=== PATIENT | female | born 2000 | race Hispanic/Latino ===

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

== ENCOUNTER → 2023-07-30 | Emergency (ER) | payer OTHER ==
[~2023-07-30] MED LIST: NA CHLORIDE 0.9% 2,000 ML ONE; ONDANSETRON 4 MG/2 ML VIAL ONE
--- OUTSIDE RECORDS SUMMARY | 2023-07-30 14:39 | XMS REPORT | Continuity of Care Document ---
Author Name Unknown Address [address] [facility] [place] [address] [facility] thconnect Address [address] [facility] [place] [address] Care Team Providers Care Lehr Loader Name Role Phone PCP, PATIENT DOES NOT HAVE A Primary Care Physic madi Unavailable GLO PARTIDA Attending Clinician Unavailable MONSERRAT HANSON Attending Clinician UnavailMonserrat Walker CNM Attending Clinician [phone] Doctor Unassigned, [place] Attending Clinician Glo Frausto MD Attending Clinician IBIS MARTINEZ Attending Clinician Unavailable MARI PICKERING Attending Clinician Unavailable BRITTNEY BANSAL Attending Clinician Unavailab BRITTNEY Shirley Attending Clinician Unavailab KERVIN Wilson Attending Clinician Unavailable VICKEY NGUYEN Attending Clinician Unavailable Carmela MARTINEZ Vickey S Attending Clinician [phone] JULIETA OSBORNE Attending Clinician Unavaila JULIETA Bhakta Attending Clinician UnavailVIJI Chapa Attending Clinician Unavailable Viji Guillen MD Attending Clinician [phone] [facility]ician Unavailable Pob, [facility] Main Attending Clinician Unavailcarlos Ceron RN, Evangelista Attending Clinician Unavailab jade HORNE, Shobha Attending Clinician [phone] Day MOSELEY, [place] Heck Attending Clinician VICKEY NGUYEN Admitting Clinician Unavailable Payers Payer Name Policy Type Policy Number Effective Date Expirati on Date Source [facility] [id number] 00:00:00 [place] [id number] 2023 00:00:00 Problems Condition Name Condition Details Condition Category Status Onset Date Resolution Date Last Treatment Date Treating Clinician Comments Source Chlamydia infection affecting Chlamydia infection affecting Disease Active 07-17 00:00: 00 [facility] History of asthma History of asthma Disease Active 07-15 00:00: 00 [facility] History of depression History of depression Disease Active 07-15 00:00: 00 [facility] General counseling and advice on female contracept ion General counseling and advice on female contracept ion Disease Active 07-26 00:00: 00 [facility] Nexplanon in place Nexplanon in place Disease Active 07-26 00:00: 00 [facility] Encounter for assessment of STD exposure Encounter for assessment of STD exposure Disease Active 2020-05 0 00:00: 00 [facility] Allergies, Adverse Reactions, Alerts Allergy Name Allergy Type Status Severity Reaction(s) Onset Date Inactive Date Treating Clinician Comments Source Penicill ins Propensi ty to adverse reaction s Active Other - See comments 2015-05 00:00: [address], fever [facility] PENICILL INS Drug Class Active Hives 2015-05 00:00: 00 [facility] Penicill ins Propensi ty to adverse reaction s Active Other - See comments 2015-05 00:00: [address], fever [facility] Social History Social Habit Start Date Stop Date Quantity Comments Source ASSERTION 2023-06-29 00:00:00 [facility] Sexual orientation [facility] Alcohol intake 2023-07-16 00:00:00 2023-07-16 00:00:00 Ex-drinker (finding) [facility] History of Social function 2023-03-26 00:00:00 2023-03-26 00:00:00 [facility] Exposure to SARS-CoV-2 (event) 2022-03-26 00:00:00 2022-04-05 13:34:00 Not sure [facility] Tobacco use and exposure 2022-02-06 00:00:00 2022-02-06 00:00:00 Smokeless tobacco non-user [facility] History SDOH Alcohol Frequency 2020-02-29 00:00:00 2020-02-29 00:00:00 99 [facility] History SDOH Alcohol Std Drinks 2020-02-29 00:00:00 2020-02-29 00:00:00 99 [facility] History SDOH Alcohol Binge 2020-02-29 00:00:00 2020-02-29 00:00:00 99 [facility] Alcohol Comment 2020-02-29 00:00:00 2020-02-29 00:00:00 last drank alcohol in 11/2019 [facility] Sex Assigned At 2002 00:00:00 2000 00:00:00 [facility] Smoking Status Start Date Stop Date Source Never smoked tobacco [facility] Medications Ordered Medication Name Filled Medication Name Start Date Stop Date Current Medication? Ordering Clinician Indication Dosage Frequency Signature (SIG) Comments Components Source azithromyci n (ZITHROMAX) 500 mg tablet 18 00:00: 00 07-22 04:59 :00 Yes [id number] 1000mg Take 2 tablets by mouth once now for 1 dose. [facility] azithromyci n (ZITHROMAX) 500 mg tablet 3-14 00:00: 00 07-18 04:59 :00 Yes [id number] 1000mg Take 2 tablets by mouth once now for 1 dose. [facility] azithromyci n (ZITHROMAX) 500 mg tablet 3-14 00:00: 00 07-18 04:59 :00 Yes [id number] 1000mg Take 2 tablets by mouth once now for 1 dose. [facility] etonogestre L 68 mg implant 2022-05 09:45: 49 03-26 00:00 :00 No 68mg 68 mg by Subdermal route once now. [facility] etonogestre L 68 mg implant 2022-05 09:45: 49 03-26 00:00 :00 No 68mg 68 mg by Subdermal route once now. [facility] cyclobenzap rine 10 mg tablet 2021-05 00:00: 00 Yes [id number] 10mg Take 1 tablet by mouth in the morning and 1 tablet at noon and 1 tablet in the evening. [facility] ketorolac 10 mg tablet 2021-05 00:00: 00 Yes [id number] 10mg Take 1 tablet by mouth every 6 (six) hours as needed for Pain (scale 7-10). [facility] cyclobenzap rine 10 mg tablet 2021-05 00:00: 00 Yes [id number] 10mg Take 1 tablet by mouth in the morning and 1 tablet at noon and 1 tablet in the evening. [facility] ketorolac 10 mg tablet 2021-05 00:00: 00 Yes [id number] 10mg Take 1 tablet by mouth every 6 (six) hours as needed for Pain (scale 7-10). [facility] cyclobenzap rine 10 mg tablet 2021-05 00:00: 00 Yes [id number] 10mg Take 1 tablet by mouth in the morning and 1 tablet at noon and 1 tablet in the evening. [facility] ketorolac 10 mg tablet 2021-05 00:00: 00 Yes [id number] 10mg Take 1 tablet by mouth every 6 (six) hours as needed for Pain (scale 7-10). [facility] cyclobenzap rine 10 mg tablet 2021-05 00:00: 00 Yes [id number] 10mg Take 1 tablet by mouth in the morning and 1 tablet at noon and 1 tablet in the evening. [facility] ketorolac 10 mg tablet 2021-05 00:00: 00 Yes [id number] 10mg Take 1 tablet by mouth every 6 (six) hours as needed for Pain (scale 7-10). [facility] cyclobenzap rine 10 mg tablet 2021-05 00:00: 00 Yes [id number] 10mg Take 1 tablet by mouth in the morning and 1 tablet at noon and 1 tablet in the evening. [facility] ketorolac 10 mg tablet 2021-05 00:00: 00 Yes [id number] 10mg Take 1 tablet by mouth every 6 (six) hours as needed for Pain (scale 7-10). [facility] cyclobenzap rine 10 mg tablet 2021-05 00:00: 00 Yes [id number] 10mg Take 1 tablet by mouth in the morning and 1 tablet at noon and 1 tablet in the evening. [facility] ketorolac 10 mg tablet 2021-05 00:00: 00 Yes [id number] 10mg Take 1 tablet by mouth every 6 (six) hours as needed for Pain (scale 7-10). [facility] cyclobenzap rine 10 mg tablet 2021-05 00:00: 00 Yes [id number] 10mg Take 1 tablet by mouth in the morning and 1 tablet at noon and 1 tablet in the evening. [facility] ketorolac 10 mg tablet 2021-05 00:00: 00 Yes [id number] 10mg Take 1 tablet by mouth every 6 (six) hours as needed for Pain (scale 7-10). [facility] cyclobenzap rine 10 mg tablet 2021-05 00:00: 00 Yes [id number] 10mg Take 1 tablet by mouth in the morning and 1 tablet at noon and 1 tablet in the evening. [facility] ketorolac 10 mg tablet 2021-05 00:00: 00 Yes [id number] 10mg Take 1 tablet by mouth every 6 (six) hours as needed for Pain (scale 7-10). [facility] cyclobenzap rine 10 mg tablet 2021-05 00:00: 00 07-15 00:00 :00 No [id number] 10mg Take 1 tablet by mouth in the morning and 1 tablet at noon and 1 tablet in the evening. [facility] ketorolac 10 mg tablet 2021-05 00:00: 00 07-15 00:00 :00 No [id number] 10mg Take 1 tablet by mouth every 6 (six) hours as needed for Pain (scale 7-10). [facility] etonogestre L 68 mg implant 06-30 13:30: 19 Yes 68mg 68 mg by Subdermal route once now. [facility] etonogestre L 68 mg implant 0 06-30 13:30: 19 Yes 68mg 68 mg by Subdermal route once now. [facility] etonogestre L 68 mg implant 0 06-30 13:30: 19 Yes 68mg 68 mg by Subdermal route once now. [facility] etonogestre L 68 mg implant 2021-0 06-30 13:30: 19 Yes 68mg 68 mg by Subdermal route once now. [facility] etonogestre L 68 mg implant 2021-0 06-30 13:30: 19 Yes 68mg 68 mg by Subdermal route once now. [facility] etonogestre L 68 mg implant 0 06-30 13:30: 19 Yes 68mg 68 mg by Subdermal route once now. [facility] etonogestre L 68 mg implant 2021-0 06-30 13:30: 19 Yes 68mg 68 mg by Subdermal route once now. [facility] etonogestre L 68 mg implant 06-30 13:30: 19 Yes 68mg 68 mg by Subdermal route once now. [facility] ity [facility] etonogestre L 68 mg implant 06-30 13:30: 19 Yes 68mg 68 mg by Subdermal route once now. [facility] ity [facility] azithromyci n 1 gram powder 2019-05 00:00: 03-03 00:00 :00 No [facility] ity [facility] azithromyci n 1 gram powder 2019-05 00:00: 00 03-03 00:00 :00 No [facility] ity [facility] ondansetron (ZOFRAN ODT) 4 mg disintegrat ing tablet 2019-05 00:00: 00 03-03 00:00 :00 No [id number] 4mg Take 1 tablet by mouth every 8 (eight) hours as needed for Nausea and Vomiting (N/V). [facility] ondansetron (ZOFRAN ODT) 4 mg disintegrat ing tablet 2019-05 00:00: 03-03 00:00 :00 No [id number] 4mg Take 1 tablet by mouth every 8 (eight) hours as needed for Nausea and Vomiting (N/V). [facility] acetaminoph en-codeine 300-30 mg tablet 2019-05 00:00: 00 03-03 00:00 :00 No [facility] ity [facility] acetaminoph en-codeine 300-30 mg tablet 2019-05 00:00: 00 03-03 00:00 :00 No [facility] ity [facility] diclofenac 75 mg EC tablet 2019-05 0 00:00: 00 03-03 00:00 :00 No [facility] it[facility] proMETHazin e 25 mg tablet 2019-05 0 00:00: 00 03-03 00:00 :00 No [facility] ity [facility] diclofenac 75 mg EC tablet 2019-05 0 00:00: 00 03-03 00:00 :00 No [facility] proMETHazin e 25 mg tablet 2019-05 0-20 00:00: 00 03-03 00:00 :00 No [facility] ibuprofen 600 mg tablet 2019-05 0-19 00:00: 00 03-03 00:00 :00 No [facility] ibuprofen 600 mg tablet 2019-05 0-19 00:00: 00 03-03 00:00 :00 No [facility] azithromyci n 250 mg tablet 2018-05 00:00: 00 03-03 00:00 :00 No [facility] azithromyci n 250 mg tablet 2018-05 00:00: 00 03-03 00:00 :00 No Univers y [facility] Vital Signs Vital Name Observation Time Observation Value Comments S ource Systolic blood pressure 2023-07-16 18:25:00 108 mm[Hg] [facility] Diastolic blood pressure 2023-07-16 18:25:00 74 mm[Hg] [facility] Heart rate 2023-07-16 18:25:00 89 /min [facility] Body temperature 2023-07-16 18:25:00 36.44 Kassandra [facility] Respiratory rate 2023-07-16 18:25:00 16 /min [facility] Body height 2023-07-16 18:25:00 165.1 cm [facility] Body weight 2023-07-16 18:25:00 55.509 kg [facility] BMI 2023-07-16 18:25:00 20.36 kg/m2 [facility] Systolic blood pressure 2023-03-26 15:08:00 124 mm[Hg] [facility] Diastolic blood pressure 2023-03-26 15:08:00 70 mm[Hg] [facility] Heart rate 2023-03-26 15:08:00 98 /min [facility] Body temperature 2023-03-26 15:08:00 36.44 Kassandra [facility] Respiratory rate 2023-03-26 15:08:00 17 /min [facility] Body height 2023-03-26 15:08:00 165.1 cm [facility] Body weight 2023-03-26 15:08:00 59.603 kg [facility] BMI 2023-03-26 15:08:00 21.87 kg/m2 [facility] Systolic blood pressure 2022-04-06 15:34:00 114 mm[Hg] [facility] Diastolic blood pressure 2022-04-06 15:34:00 72 mm[Hg] [facility] Heart rate 2022-04-06 15:34:00 74 /min [facility] Respiratory rate 2022-04-06 15:34:00 18 /min [facility] Body height 2022-04-06 15:34:00 165.1 cm [facility] Body weight 2022-04-06 15:34:[address] [facility] BMI 2022-04-06 15:34:00 20.80 kg/m2 Univ [facility] Oxygen saturation in Arterial blood by Pulse oximetry 2022-04-06 15:34:00 99 /min [facility] Systolic blood pressure 2022-04-03 21:16:00 104 mm[Hg] [facility] Diastolic blood pressure 2022-04-03 21:16:00 66 mm[Hg] [facility] Heart rate 2022-04-03 21:16:00 79 /min [facility] Body temperature 2022-04-03 21:16:00 37 Kassandra [facility] Respiratory rate 2022-04-03 21:16:00 19 /min [facility] Body height 2022-04-03 21:16:00 165.1 cm [facility] Body weight 2022-04-03 21:16:[address] [facility] BMI 2022-04-03 21:16:00 20.47 kg/m2 [facility] Oxygen saturation in Arterial blood by Pulse oximetry 2022-04-03 21:16:00 99 /min [facility] Systolic blood pressure 2022-02-06 15:09:00 109 mm[Hg] [facility] Diastolic blood pressure 2022-02-06 15:09:00 70 mm[Hg] [place] [facility] Heart rate 2022-02-06 15:09:00 74 /min [facility] Body temperature 2022-02-06 15:09:00 36.72 Kassandra [facility] Respiratory rate 2022-02-06 15:09:00 18 /min [facility] Body height 2022-02-06 15:09:00 160 cm [facility] Body weight 2022-02-06 15:09:00 55.792 kg [facility] BMI 2022-02-06 15:09:00 21.79 kg/m2 [facility] Procedures Procedure Date / Time Performed Performing Clinician Source POCT URINALYSIS W/O SPECIFIC GRAVITY 2023-07-16 18:28:00 Monserrat Hanson [facility] POCT TEST 2023-07-16 18:18:00 Di Hanson [facility] ASSIGNMENT OF BENEFITS 2023-07-16 18:12:21 Docarlet r Unassigned, [place] [facility] PATIENT FINANCIAL POLICY 2023-03-26 14:57:33 Doctor Unassigned, [place] [facility] INSURANCE CORRESPONDENCE 2022-04-11 06:01:00 Doc tor Unassigned, [place] [facility] ASSIGNMENT OF BENEFITS 2022-04-03 23:00:16 Docto r Unassigned, [place] [facility] XR ANKLE 3+ VW RIGHT 2022-04-03 22:08:49 Vickey Nguyen [facility] CONSENT/REFUSAL FOR DIAGNOSIS AND TREATMENT 2022-04-03 21:07:00 Doctor Unassigned, [place] [facility] Encounters Start Date/Time End Date/Time Encounter Type Admission Type Attending Clinicians Care Facility Care Department Encounter ID Source 2021-03-04 00:31:56 Emergency [facility] [id number] [facility] 2023-07-22 00:00:00 2023-07-22 00:00:00 Case Management Monserrat Hanson [facility] COM WRITER [facility] & CHILD [facility] 1.2.840.114 350.1.13.10 4.2.7.2.686 [id number] [facility] 2023-07-22 00:00:00 2023-07-22 00:00:00 Patient Secure Msg Kelley Monserrat Lanza [facility] COM WRITER [facility] CHILD [facility] 1.2.840.114 350.1.13.10 4.2.7.2.686 [id number] [facility] 2023-07-18 00:00:00 2023-07-18 00:00:00 Telephone Monserrat Hanson [facility] COM WRITER [facility] CHILD [facility] 1.2.840.114 350.1.13.10 4.2.7.2.686 [id number] [facility] 2023-07-18 00:00:00 2023-07-18 00:00:00 Telephone Alexeynicolasa Monserrat Lanza [facility] COM WRITER [facility] CHILD [facility] 1.2.840.114 350.1.13.10 4.2.7.2.686 [id number] [facility] 2023-07-16 13:00:00 2023-07-16 14:21:46 Initial Visit Monserrat Hanson [facility] COM WRITER [facility] & CHILD [facility] 1.2.840.114 350.1.13.10 4.2.7.2.686 [id number] [facility] 2023-07-16 12:30:00 2023-07-16 13:18:57 Outpatient R MOSNERRAT HANSON [facility] [id number] [facility] 2023-07-16 00:00:00 2023-07-16 00:00:00 Orders Only Doctor Unassigned, [place] [facility] 1.2.840.114 350.1.13.10 4.2.7.2.686 [id number] [facility] 2023-04-09 15:15:45 2023-04-09 15:15:45 Outpatient [facility] [id number] Fernando Reynoso 2023-03-26 09:00:00 2023-03-26 09:42:29 Outpatient GLO CHOUDHURY [facility] [id number] [facility] 2023-03-26 09:00:00 2023-03-26 09:42:29 Office Visit [facility] 1.840.114 350.1.13.10 4.2.7.2.686 [id number] [facility] 2023-03-26 00:00:00 2023-03-26 00:00:00 Orders Only Doctor Unassigned, [place] [facility] 1.840.114 350.1.13.10 4.2.7.2.686 [id number] [facility] 2023-03-19 09:00:00 2023-03-19 09:00:00 Outpatient GLO CHOUDHURY [facility] [id number] [facility] 2023-02-26 00:00:00 2023-02-26 00:00:00 Telephone [employer] [facility] 1.840.114 350.1.13.10 4.2.7.2.686 [id number] [facility] 2022-06-08 11:20:00 2022-06-08 11:20:00 Outpatient IBIS ELAINE [facility] [id number] [facility] 2022-05-01 14:45:00 2022-05-01 14:45:00 Outpatient MARI STEPHENSON [facility] [id number] [facility] 2022-04-27 10:30:00 2022-04-27 10:30:00 Outpatient MARI STEPHENSON [facility] [id number] [facility] 2022-04-12 00:00:00 2022-04-12 00:00:00 Outpatient R BRITTNEY BANSAL BRITTNEY [facility] [id number] [facility] 2022-04-11 00:00:00 2022-04-11 00:00:00 Orders Only Doctor Unassigned, [place] [facility] 1..840.114 350.1.13.10 4.2.7.2.686 [id number] [facility] 2022-04-06 09:00:00 2022-04-06 10:00:08 Outpatient R ROLF [facility] [id number] [facility] 2022-04-06 09:00:00 2022-04-06 10:00:08 Office Visit Rolf Kailynidris [facility] 1..840.114 350.1.13.10 4.2.7.2.686 [id number] [facility] 2022-04-05 13:30:00 2022-04-05 13:30:00 Outpatient KERVIN CORTEZ [facility] [id number] [facility] 2022-04-03 15:18:00 2022-04-03 17:35:00 Emergency X VCIKEY NGUYEN [facility] ERT [id number] [facility] 2022-04-03 15:18:00 2022-04-03 17:35:00 Emergency Vickey Nguyen [facility] 1..840.114 350.1.13.10 4.2.7.2.686 [id number] [facility] 2022-02-23 11:30:00 2022-02-23 11:30:00 Outpatient JULIETA TAFOYA CHERYAL [facility] [id number] [facility] 2022-02-20 11:15:00 2022-02-20 11:15:00 Outpatient R ALBERTJULIETA RICHARDSON JULIETA OSBORNE [facility] [id number] [facility] 2022-02-06 09:30:00 2022-02-06 10:42:38 Outpatient R VIJI GUILLEN [facility] [id number] [facility] 2022-02-06 09:30:00 2022-02-06 10:42:38 Office Visit Viji Guillen [facility] 1.2.840.114 350.1.13.10 4.2.7.2.686 [id number] [facility] 2022-02-06 00:00:00 2022-02-06 00:00:00 Letter (Out) Wilmer Viji [facility] 1.2.840.114 350.1.13.10 4.2.7.2.686 [id number] [facility] 2021-07-26 11:30:00 2021-07-26 12:07:40 Office Visit AlbertJulieta richardson [facility] 1.2.840.114 350.1.13.10 4.2.7.2.686 [id number] [facility] 2021-07-26 11:30:00 2021-07-26 12:07:40 Outpatient R DYLONJULIETA DYLON KYLIEDINORA [facility] [id number] [facility] 2021-07-26 11:30:00 2021-07-26 11:30:00 Outpatient R DYLONJULIETA DYLON KYLIEDINORA [facility] [id number] [facility] 2021-07-26 00:00:00 2021-07-26 00:00:00 Letter (Out) Wilmer Viji [facility] 1.2.840.114 350.1.13.10 4.2.7.2.686 [id number] [facility] 2021-06-29 10:00:00 2021-06-29 10:40:33 Office Visit Viji Guillen [facility] 1.2.840.114 350.1.13.10 4.2.7.2.686 [id number] [facility] 2021-06-29 10:00:00 2021-06-29 10:40:33 Outpatient R VIJI GUILLEN [facility] [id number] [facility] 2021-06-29 10:00:00 2021-06-29 10:00:00 Outpatient R VIJI GUILLEN [facility] [id number] [facility] 2021-06-27 00:00:00 2021-06-27 00:00:00 Telephone Viji Guillen [facility] 1.2.840.114 350.1.13.10 4.2.7.2.686 [id number] [facility] 2021-04-12 14:24:49 2021-04-12 14:46:10 Nurse Visit Nurse, [facility] Wilmer Viji [facility] 1.2.840.114 350.1.13.10 4.2.7.2.686 [id number] [facility] 2021-04-12 14:00:00 2021-04-12 14:00:00 Outpatient R VIJI GUILLEN [facility] [id number] [facility] 2021-04-12 09:00:00 2021-04-12 09:00:00 Outpatient R [facility] [id number] [facility] 2021-04-12 00:00:00 2021-04-12 00:00:00 Letter (Out) [facility]mer [facility] [facility] 1.2840.114 350.1.13.10 4.2.7.2.686 [id number] [facility] 2021-03-09 00:00:00 2021-03-09 00:00:00 Telephone Viji Guillen [facility] 1.2840.114 350.1.13.10 4.2.7.2.686 [id number] [facility] 2021-03-07 00:00:00 2021-03-07 00:00:00 Case Management Viji Guillen [facility] 1.20.114 350.1.13.10 4.2.7.2.686 [id number] [facility] 2021-03-03 16:26:48 2021-03-03 16:41:48 Toe Puncher Visit Bishop, Adc Lab Main Viji Guillen [facility] 1.2840.114 350.1.13.10 4.2.7.2.686 [id number] [facility] 2021-03-03 14:49:36 2021-03-03 16:03:08 Office Visit Viji Guillen [facility] 1.2840.114 350.1.13.10 4.2.7.2.686 [id number] [facility] 2021-03-03 14:30:00 2021-03-03 16:03:08 Outpatient R VIJI GUILLEN [facility] [id number] [facility] 2021-03-03 14:30:00 2021-03-03 16:03:08 Outpatient R VIJI GUILLEN [facility] [id number] [facility] 2021-03-03 00:00:00 2021-03-03 00:00:00 Orders Only Doctor Unassigned, [place] [facility] 1.2840.114 350.1.13.10 4.2.7.2.686 [id number] [facility] 2021-03-03 00:00:00 2021-03-03 00:00:00 Letter (Out) Viji Guillen [facility] 1.2840.114 350.1.13.10 4.2.7.2.686 [id number] [facility] 2020-09-09 14:30:00 2020-09-09 15:00:00 Office Visit Viji Guillen [facility] 1.2.114 350.1.13.10 4.2.7.2.686 [id number] [facility] 2020-09-09 14:30:00 2020-09-09 14:30:00 Outpatient R VIJI GUILLEN [facility] [id number] [facility] 2020-09-09 14:30:00 2020-09-09 14:30:00 Outpatient R VIJI GUILLEN [facility] [id number] [facility] 2020-03-05 00:00:00 2020-03-05 00:00:00 [facility]..114 350.1.13.10 4.2.7.2.686 [id number] [facility] 2020-03-04 15:37:05 2020-03-04 15:52:05 Toe Puncher Visit Pob, Adc Lab Main Viji Guillen [facility] 1.2.114 350.1.13.10 4.2.7.2.686 [id number] [facility] 2020-03-04 14:31:32 2020-03-04 15:13:57 Office Visit Viji Guillen [facility] 1.2840.114 350.1.13.10 4.2.7.2.686 [id number] [facility] 2020-03-04 14:30:00 2020-03-04 14:30:00 Outpatient R VIJI GUILLEN [facility] [id number] [facility] 2020-03-04 14:00:00 2020-03-04 14:00:00 Outpatient R VIJI GUILLEN [facility] [id number] [facility] 2020-03-04 00:00:00 2020-03-04 00:00:00 Orders Only Doctor Unassigned, [place] [facility] 1.2840.114 350.1.13.10 4.2.7.2.686 [id number] [facility] 2020-03-04 00:00:00 2020-03-04 00:00:00 Letter (Out) Wilmer Viji [facility] 1.2840.114 350.1.13.10 4.2.7.2.686 [id number] [facility] 2020-03-03 00:00:00 2020-03-03 00:00:00 Orders Only Doctor Unassigned, [place] [facility] 1.2840.114 350.1.13.10 4.2.7.2.686 [id number] [facility] 2020-03-01 00:00:00 2020-03-01 00:00:00 Case Management Viji Guillen [facility] 1.2840.114 350.1.13.10 4.2.7.2.686 [id number] [facility] 2020-02-29 10:00:00 2020-02-29 10:00:00 Outpatient R VIJI GUILLEN [facility] [id number] [facility] 2020-02-29 00:00:00 2020-02-29 00:00:00 Orders Only Doctor Unassigned, [place] [facility] 1.2.840.114 350.1.13.10 4.2.7.2.686 [id number] [facility] 2020-02-25 13:58:00 2020-02-25 17:32:00 Emergency Shobha Bray [facility] 1.2.840.114 350.1.13.10 4.2.7.2.686 [id number] [facility] 2020-02-25 00:00:00 2020-02-25 00:00:00 Orders Only Doctor Unassigned, [place] [facility] 1.2.840.114 350.1.13.10 4.2.7.2.686 [id number] [facility] 2019-12-29 09:30:00 2019-12-29 09:30:00 Outpatient R JAQUAN [facility] [id number] [facility] 2019-12-15 09:00:00 2019-12-15 09:00:00 Outpatient Ailyn PARTIDA [facility] [id number] [facility] 2019-06-05 09:12:21 2019-06-05 09:31:03 Office Visit Dayton Bernstein [facility] Surgical [facility] 1.2.840.114 350.1.13.10 4.2.7.2.686 [id number] [facility] 2019-06-05 09:12:21 2019-06-05 09:31:03 Office Visit Dayton Bernstein [facility] 1.2.840.114 350.1.13.10 4.2.7.2.686 [id number] Results Test Description Test Time Test Comments Results Result Co mments Source [id number] 18:18:00* Test Item Value Reference Range Interpretation Comme nts POCT PREG (test code = 1605) Positive On board controls acceptable with C Line (test code = 3574) Yes POCT PREG LOT # (test code = 3575) POCT PREG TEST DATE ( test code = 3576) [facility] ([facility]), RT-PCR/[id number] 15:36:12* Test Item Value Reference Range Interpretation Comments SARS-CoV-2 INTERPRETATION (test code = 21459) NEGATIVE SEE NOTE SARS-CoV-2 R NA NOT DETECTEDNegative results do not preclude SARS-CoV-2 infection and should notbe used as the sole basis for patient management decisions. Negativeresults must be combined with clinical observations, patient history,and epidemiological information. Optimum specimen types and timingfor peak viral levels during infections caused by SARS-CoV-2 have notbeen determined. Collection of multiple specimens or types ofspecimens may be necessary to detect virus. Improper specimencollection and handling, sequence variability under primers/probes,or organism present below the limit of detection may lead to falsenegative results. Positive and negative predictive values oftesting are highly dependent on prevalence. False negative testresults are more likely when prevalence is high. SOURCE (test code = 59358) NOT SPECIFIED Note: Methodolog y is Vonda Darryl Real-Time RT-PCR. The expected result or reference range is NEGATIVE (Not Detected). For more information regarding COVID-19 testing to include clinicalinformation, methodology detail, intended use, FDA authorization andrecommended fact sheets for patients or healthcare providers, see Data Impact Announcement: SARS-CoV-2 (COVID-19) by NAAT at URL below (note,fact sheets are provided by method given in report:[email or web address] Alternatively, see downloadable PDF fact sheet at:[email or web address] UNLESS OTHERWISE INDICATED, ALL TESTING PERFORMED [facility] [address] [place] [address] OPTICS ENGINEER: BLAIRE NARANJO M.D. CLIA NUMBER [id number] [facility] [place]. [id number] Notes Date/Time Note Provider Source 2023-07-22 13:25:11 /[id number] LMnHHbyzyml9vw qYS77pZacJTzY0q1xTxFLCq3oRnOT34445 T13:25:11 Patient states she just threw up and asking what she should do?Please contact pt at [phone] (home) 19226-5Okayxjpmo encounter VxbxOJ9332-34-22B44:25:22Telephone encounter NoteTXT1.2.840.638465.1.13.104.2.7 .2.208013|[id number] for patient khoe61816-1KhyzYOBHLVBYIUWOqrgcaup d C-CDA narrative [id number] Umang [address] Mq[id number] 04BYWZLEPLQUUWDHMOCROVGV7772-77-40 T13:25:221.2.840.045156.1.72.3.15| 1.2.840.259396.1.13.104.2.7.2.7278 [id number] Henrietta Umang [facility] 2023-07-18 09:10:57 F6NGGOJFqb5Yi6yVm9g+ lBmBKYJdQ/lT6G 3kkMDMZMGSZa6lBzmZzE9eQr8nKCuj0663 -03-14T09:10:57 Patient educated on results for chlamydia, verbalized understanding. 40518-2Agamqwtcv encounter MhxiPL4904-32-69Q91:16:55Telephone encounter NoteTXT1.2.840.958191.1.13.104.2.7 .2.457206|[id number] for patient ltcf55438-4ZxyaAJGTICPMMVIFgzxlcww d C-CDA narrative [id number] Garcia [id number] 55CBGJPXKUNWDCKCPVGYRXSP3817-22-57 T09:16:551.2.840.918422.1.72.3.15| 1.2.840.016544.1.13.104.2.7.2.7278 [id number] Jenny Henriquez CHIEF SCIENTIST [facility] 2023-07-18 08:18:50 vX13uICRVIV0XeDSxRZD zg73IL4LR/qcke j6jIAUO7EvEX4G4Ijz8FAIGyXvYRdO6436 -03-14T08:18:50 Notified the patient of her positive STI results Chlamydia.Notified the patient her medication has been sent to her pharmacy on file.Educated patient she should complete the entire course, advised patient to practice safe sex practices and to remain abstinent for at least 1-2 weeks post treatment.Patient desires to have partner treated.Name of partner: Eder Del Cid: 02/03/2001Phone number:[phone] std pamphlet for partner education. Patient declinedstd pamphlet to be mailed to partner.Partners addressAdvised patient on HIV testing if she has not recently been tested.Advised SHELBY appointment in 3 months. Pt verbalized understanding.Loreto Valdovinos RN 07/18/23 8:21 AM 01209-9Pmgfucjwe encounter KnotAD0048-70-18E53:21:37Telephone encounter NoteTXT1.2.840.400488.1.13.104.2.7 .2.769211|[id number] for patient rjtw90019-3ZqbeTSGJDVKWDVGAicecihv d C-CDA narrative [id number] Hernandez RN[id number] 83JXZVBEWMFVMYVGWZEXBKYZ1214-63-99 T08:21:371.2.840.774767.1.72.3.15| 1.2.840.824679.1.13.104.2.7.2.7278 [id number] Loreto Valdovinos RN [facility] 2023-07-18 08:03:58 P8WhTY4P/f6CoQ0bB/92 t67dgq/UG0tYHw qko1DUKTYCtmJDQ2EFd+SHOrJu+Pg34112T08:03:58 Pt tested positive for chlamydia. Prescription for zithromax routed to her pharmacy on file/ordered for clinic pickup/administration. Please notify patient of results. Her partner needs to be notified and should be encouraged to follow up with his PCP or may come to [facility] for treatment. If the partner is unwilling or unable to come to the clinic, PDPT/EPT can be initiated. If the patient s partner has no allergies to antibiotics and does not have any abdominal pain, pelvic pain, or genital/groin pain, you may route a prescription for doxycycline to the partner s choice of pharmacy and mail a copy of the STD handouts to the patient or may mail to the partner for delivery to the patient. If the patient reports her partner is symptomatic he should be encouraged to seek treatment immediately and in person. The patient should have a follow up STD screen in 3 months which has been future ordered (if will need SHELBY in 3-4 weeks). 20458-0Udopcjjbv encounter NlyzJV9252-55-88K75:04:58Telephone encounter NoteTXT1.2.840.784195.1.13.104.2.7 .2.186788|[id number] for patient klti63548-5MawbTLGOYJBNFFBUmsbypfe d C-CDA narrative [address] SkjdGjfxqjfhlDdvmlmozzIZVA78355810 83FEUCEZXCCISJWMIQPEZGBW1997-60-70 T08:04:581.2.840.692436.1.72.3.15| 1.2.840.372288.1.13.104.2.7.2.7278 [id number] [facility]"
[2023-07-30 16:16] LABS: Specific Gravity 1.024 (1.005-1.030); Sqamous Epithelial 20-50 /HPF (None Seen); Urine Bacteria <20 /HPF (<20); Urine Bilirubin NEGATIVE (Negative); Urine Blood Negative (Negative); Urine Clarity Extremely Turbid (Clear); Urine Color Yellow (Yellow); Urine Crystals Unidentified Few /HPF (None Seen); Urine Culture Reflex Order NOT NEEDED; Urine Glucose NEGATIVE (Negative); Urine Ketones 2+ (Negative); Urine Micro Reflex YN NO BILL MICROSCOPIC; Urine Mucus 4+ /HPF (None Seen); Urine Nitrite NEGATIVE (Negative); Urine Protein 1+ (Negative); Urine RBC <5 /HPF (None Seen); Urine Urobilinogen 1+ (Normal); Urine WBC <5 /HPF (<5); Urine Yeast (Budding) Few /HPF (None Seen)
[2023-07-30 16:25] LABS: Absolute Lymphocytes (CBC) 1.2 K/uL (0.7-4.9); Absolute Monocytes 0.4 K/uL (0.1-1.3); Basophils % 0.5 % (0-1.3); Eosinophils % 0.5 % (0-4.4); Hematocrit 38.3 % (36.0-45.0); Hemoglobin 12.6 g/dL (12.0-15.0); Lymphocytes % 18.1 % (15.3-44.8); MCH 30.4 pg (27.0-35.0); MCV 92.1 fL (80-100); MPV 9.8 fL (7.6-11.3); Neutrophils % 74.9 % (41.7-73.7); Platelets 205 thou/uL (152-406); RBC Red Blood Cell Count 4.16 M/uL (3.86-4.86); Red Cell Distribution Width 12.6 % (12.1-15.2)
[2023-07-30 16:31] LABS: Albumin 4.3 g/dL (3.4-5.0); Albumin/Globulin Ratio 1.3 (1.1-1.8); Anion Gap 7.8 mEq/L (5.0-15.0); Bilirubin Total 0.6 mg/dL (0.2-1.0); Globulin 3.4 g/dL (2.3-3.5); Potassium 3.8 mEq/L (3.5-5.1); Protein, Total 7.7 g/dL (6.4-8.2)
--- NOTE | 2023-07-30 17:18 | ER ---
Nurse's Notes [facility] Name: Desiree Osman Age: 22 yrs Sex: Female : 2000 Arrival Date: 07/30/2023 Time: 14:35 Bed 15 Private MD: Diagnosis: Hyperemesis gravidarum Presentation: 07/29 14:56 Chief complaint: Patient states: N/V/D for 2 days. Pain to R side of back. No fever. 6 ll1 weeks G1, P0. Coronavirus screen: Client denies travel out of the [place] in the last 14 days. At this time, the client does not indicate any symptoms associated with coronavirus-19. Ebola Screen: Patient denies travel to an Ebola-affected area in the 21 days before illness onset. Initial Sepsis Screen: Does the patient meet any 2 criteria? No. Patient's initial sepsis screen is negative. Does the patient have a suspected source of infection? No. Patient's initial sepsis screen is negative. Risk Assessment: Do you want to hurt yourself or someone else? Patient reports no desire to harm self or others. Onset of symptoms was July 29, 2023. 14:56 Method Of Arrival: Ambulatory 1 14:56 Acuity: RAIMUNDO 3 ll1 Triage Assessment: 14:58 General: Appears uncomfortable, ill, Behavior is calm, cooperative, appropriate for ll1 age. Pain: Complains of pain in R back Quality of pain is described as aching. Neuro: Reports weakness. GI: Reports cramping, diarrhea, nausea, vomiting. Musculoskeletal: Reports pain in R back. Historical: - Allergies: 14:57 PENICILLINS; ll1 - PMHx: 14:57 Asthma; ll1 - Immunization history:: Adult Immunizations up to date. - Social history:: Smoking status: Patient denies any tobacco usage or history of. - Family history:: not pertinent. Screenin:08 [facility] ED Fall Risk Assessment (Adult) History of falling in the last 3 months, as6 including since admission No falls in past 3 months (0 pts) Confusion or Disorientation No (0 pts) Intoxicated or Sedated No (0 pts) Impaired Gait No (0 pts) Mobility Assist Device Used No (0 pt) Altered Elimination No (0 pt) Score/Fall Risk Level 0 - 2 = Low Risk Oriented to surroundings, Maintained a safe environment, Educated pt \T\ family on fall prevention, incl call for assistance when getting out of bed, Assessed \T\ reinforced patient's understanding of fall precautions, Hourly rounding (assess needs \T\ fall precautionary measures) done. Abuse screen: Denies threats or abuse. Denies injuries from another. Nutritional screening: No deficits noted. Tuberculosis screening: No symptoms or risk factors identified. Assessment: 16:18 General: Appears in no apparent distress. Behavior is calm, cooperative. Pain: Denies mb9 pain. Neuro: Parra Agitation-Sedation Scale (RASS): 0 - Alert and Calm Level of Consciousness is awake, alert, obeys commands, Oriented to person, place, time, situation, Appropriate for age. Cardiovascular: Patient's skin is warm and dry. Respiratory: Airway is patent Respiratory effort is even, unlabored, Respiratory pattern is regular, symmetrical. GI: Abdomen is flat, non-distended, Bowel sounds present X 4 quads. Abd is soft and non tender Reports diarrhea, nausea, vomiting. : No signs and/or symptoms were reported regarding the genitourinary system. Derm: Skin is pink, warm \T\ dry. Musculoskeletal: Range of motion: intact in all extremities. 17:16 Reassessment: Patient and/or family updated on plan of care and expected duration. Pain mb9 level reassessed. Patient is alert, oriented x 3, equal unlabored respirations, skin warm/dry/pink. Patient states feeling better. Patient states symptoms have improved. Vital Signs: 14:56 BP 102 / 56; Pulse 87; Resp 17; Temp 98.7; Pulse Ox 100% ; Weight 55.34 kg; Height 5 ll1 ft. 3 in. ; Pain 7/10; 16:41 BP 99 / 68; Pulse 84; Resp 16; Pulse Ox 100% on R/A; mb9 14:56 Body Mass Index 21.61 (55.34 kg, 160.02 cm) ll1 14:56 Pain Scale: Adult ll1 ED Course: 14:38 Patient arrived in ED. rg4 14:39 Yakov Keating MD is Attending Physician. rt 14:57 Triage completed. ll1 14:58 Arm band placed on. ll1 15:55 Initial lab(s) drawn, by me, sent to lab. Urine collected: clean catch specimen, as6 cloudy. Inserted saline lock: 20 gauge in left antecubital area, using aseptic technique. Blood collected. 16:12 Augustina Lal, RN is Primary Nurse. mb9 16:12 Placed in gown. Bed in low position. Call light in reach. Side rails up X 1. Client mb9 placed on continuous cardiac and pulse oximetry monitoring. NIBP monitoring applied. playground monitor on. 16:18 No provider procedures requiring assistance completed. mb9 17:16 IV discontinued, intact, bleeding controlled, No redness/swelling at site. Pressure mb9 dressing applied. Administered Medications: 16:07 Drug: Ondansetron IVP 4 mg IVP once; over 2 minutes Route: IVP; Site: left antecubital; as6 17:14 Follow up: Response: No adverse reaction mb9 16:07 Drug: NS 0.9% IV 2000 ml IV at 1 bolus Per protocol; 1000 mL bolus Route: IV; Rate: 1 as6 bolus; Site: left antecubital; 17:17 Follow up: Response: No adverse reaction; IV Status: Completed infusion mb9 Medication: 16:09 VIS not applicable for this client. as6 Outcome: 17:17 Discharge ordered by MD. rt 17:21 Discharged to home ambulatory, mb9 17:21 Condition: stable 17:21 Discharge instructions given to patient, family, Instructed on discharge instructions, follow up and referral plans. Demonstrated understanding of instructions, follow-up care, medications, Prescriptions given X 1, 17:22 Patient left the ED. mb9 Signatures: Kathie Henriquez rg4 Cristi Galvin RN RN ll1 Gary Lopez RN RN as6 Augustina Lal, RN RN mb9 Yakov Keating MD MD rt
--- NOTE | 2023-07-30 17:18 | EDPHYS ---
Physician Documentation [facility] Name: Desiree Osman Age: 22 yrs Sex: Female : 2000 Arrival Date: 07/30/2023 Time: 14:35 Bed 15 Private MD: ED Physician Yakov Keating HPI: 07/29 16:10 This 22 yrs old Female presents to ER via Ambulatory with complaints of rt Vomiting. 16:10 Patient who is currently 6 weeks presents to the ED with nausea, vomiting. rt Denies any vaginal bleeding, discharge. States that she is not able to keep anything down by mouth. She states that she feels fatigued. Denies other acute complaints, symptoms are moderate in severity, no other aggravating or elevating factors.. Historical: - Allergies: 14:57 PENICILLINS; ll1 - PMHx: 14:57 Asthma; ll1 - Immunization history:: Adult Immunizations up to date. - Social history:: Smoking status: Patient denies any tobacco usage or history of. - Family history:: not pertinent. ROS: 16:10 Cardiovascular: Negative for chest pain, palpitations, and edema, Respiratory: Negative rt for shortness of breath, cough, wheezing, and pleuritic chest pain, MS/Extremity: Negative for injury and deformity, Skin: Negative for injury, rash, and discoloration, Neuro: Negative for headache, weakness, numbness, tingling, and seizure, 16:10 Constitutional: Positive for fatigue, Negative for fever, 16:10 Abdomen/GI: Positive for nausea, vomiting, Exam: 16:10 Constitutional: This is a well developed, well nourished patient who is awake, alert, rt and in no acute distress. Head/Face: Normocephalic, atraumatic. Chest/axilla: Normal chest wall appearance and motion. Nontender with no deformity. No lesions are appreciated. Cardiovascular: Regular rate and rhythm with a normal S1 and S2. No gallops, murmurs, or rubs. Normal PMI, no JVD. No pulse deficits. Respiratory: Lungs have equal breath sounds bilaterally, clear to auscultation and percussion. No rales, rhonchi or wheezes noted. No increased work of breathing, no retractions or nasal flaring. Abdomen/GI: Soft, non-tender, with normal bowel sounds. No distension or tympany. No guarding or rebound. No evidence of tenderness throughout. Skin: Warm, dry with normal turgor. Normal color with no rashes, no lesions, and no evidence of cellulitis. MS/ Extremity: Pulses equal, no cyanosis. Neurovascular intact. Full, normal range of motion. 16:10 ENT: Dry mucous membranes. Vital Signs: 14:56 BP 102 / 56; Pulse 87; Resp 17; Temp 98.7; Pulse Ox 100% ; Weight 55.34 kg; Height 5 ll1 ft. 3 in. ; Pain 7/10; 16:41 BP 99 / 68; Pulse 84; Resp 16; Pulse Ox 100% on R/A; mb9 14:56 Body Mass Index 21.61 (55.34 kg, 160.02 cm) ll1 14:56 Pain Scale: Adult ll1 MDM: 14:57 Patient medically screened. rt 17:28 Differential diagnosis: Hyperemesis gravidarum, electrolyte disturbance. Data reviewed: rt vital signs, nurses notes, lab test result(s). I considered the following discharge prescriptions or medication management in the emergency department Medications were administered in the Emergency Department. See MAR. Test considered but Not performed: CT: Benign abdominal examination, low suspicion for acute surgical pathology such as appendicitis, cholecystitis, CT scan of the abdomen pelvis is not indicated.. Counseling: I had a detailed discussion with the patient and/or guardian regarding the historical points, exam findings, and any diagnostic results supporting the discharge/admit diagnosis, lab results, the need for outpatient follow up, to return to the emergency department if symptoms worsen or persist or if there are any questions or concerns that arise at home. Response to treatment: the patient's symptoms have markedly improved after treatment, Patient is feeling better, is p.o. tolerant.. 07/29 15:04 Order name: CBC with Diff; Complete Time: 16:35 rt 07/29 15:04 Order name: CMP; Complete Time: 16:35 rt 07/29 15:04 Order name: UAM; Complete Time: 16:35 rt 07/29 16:39 Order name: PO challenge; Complete Time: 16:41 rt Administered Medications: 16:07 Drug: Ondansetron IVP 4 mg IVP once; over 2 minutes Route: IVP; Site: left antecubital; as6 17:14 Follow up: Response: No adverse reaction mb9 16:07 Drug: NS 0.9% IV 2000 ml IV at 1 bolus Per protocol; 1000 mL bolus Route: IV; Rate: 1 as6 bolus; Site: left antecubital; 17:17 Follow up: Response: No adverse reaction; IV Status: Completed infusion mb9 Disposition Summary: 07/30/23 17:17 Discharge Ordered Notes: Location: Home rt Problem: new rt Symptoms: have improved rt Condition: Stable rt Diagnosis - Hyperemesis gravidarum rt Followup: rt - With: Private Physician - When: 5 - 6 days - Reason: Discharge Instructions: - Discharge Summary Sheet rt - Hyperemesis Gravidarum rt Forms: - Medication Reconciliation Form rt - Thank You Letter rt - Antibiotic Education rt - Prescription Opioid Use rt - Patient Portal Instructions rt - Leadership Thank You Letter rt Prescriptions: - ondansetron 4 mg Oral Tablet,disintegrating - take 1 tablet ORAL route every 6 hours As needed; 30 tablet; Refills: 0, rt Product Selection Permitted Signatures: Dispatcher [employer] Cristi Khanna, RN RN ll1 Gary Lopez RN RN as6 Yakov Keating MD MD rt Augustina Lal RN mb9
[2023-07-30 17:56] VITALS: BP 99/68; TEMP 98.7; O2SAT 100
== END ==
LOC: ER 14:35
DX: O21.0 Mild hyperemesis gravidarum (principal); Z3A.01 Less than 8 weeks gestation of pregnancy; Z88.0 Allergy status to penicillin
CPT/HCPCS: 85025; 81001; 36415; 80053; J2405; J7030

== ENCOUNTER 2023-08-21 14:53 | Emergency (ER) | payer OTHER ==
--- OUTSIDE RECORDS SUMMARY | 2023-08-21 14:57 | XMS REPORT | Continuity of Care Document ---
Author Name Unknown Address [address] [facility] [address] [place] [address] [facility] thconnect Address [address] [facility] [address] [place] [address] Care Team Providers Care E Commerce Architect Name Role Phone Pcp, Patient Does Not Have A Primary Care Physic madi GLO HUNTER Attending Clinician Unavailable MONSERRAT HANSON Attending Clinician Unavailjanes Wynne RN, Celeste Matthews Attending Clinician Unavailable Monserrat Hanson CNM Attending Clinician [phone] Doctor Unassigned, [place] Attending Clinician U Glo Anton MD Attending Clinician [phone] IBIS MARTINEZ Attending Clinician Unavailable MARI PICKERING Attending Clinician Unavailable BRITTNEY BANSAL Attending Clinician Unavailab BRITTNEY Shirley Attending Clinician Unavailab KERVIN Wilson Attending Clinician Unavailable VICKEY NGUYEN Attending Clinician Unavailable Vickey Stallings Attending Clinician [phone] JULIETA OSBORNE Attending Clinician Unavaila JULIETA Bhakta Attending Clinician Unavaila VIJI Rushing Attending Clinician Unavailable Viji Guillen MD Attending Clinician [phone] Nurse, [facility] Attending Clinician Unavailable Pob, [facility] Attending Clinician Unavailcarlos Ceron RN, Evangelista Attending Clinician Unavailab Shobha Ralph Attending Clinician [phone] Dayton Bernstein MD Attending Clinician [phone] VICKEY NGUYEN Admitting Clinician Unavailable Payers Payer Name Policy Type Policy Number Effective Date Expirati on Date Source [facility] [id number] 00:00:00 [facility] [id number] 2023 00:00:00 [place] [id number] 2023 00:00:00 Problems Condition Name Condition Details Condition Category Status Onset Date Resolution Date Last Treatment Date Treating Clinician Comments Source Nausea and vomiting during Nausea and vomiting during Disease Active 4-10 00:00: 00 [facility] Rh negative state in antepartum period Rh negative state in antepartum period Disease Active 4-09 00:00: 00 [facility] Chlamydia infection affecting Chlamydia infection affecting Disease Active 3-14 00:00: 00 [facility] History of asthma History of asthma Disease Active -12 00:00: 00 [facility] History of depression History of depression Disease Active -12 00:00: 00 [facility] General counseling and advice on female contracept ion General counseling and advice on female contracept ion Disease Active -23 00:00: 00 [facility] Nexplanon in place Nexplanon in place Disease Active 07-26 00:00: 00 [facility] Encounter for assessment of STD exposure Encounter for assessment of STD exposure Disease Active 2020-05 029 00:00: 00 [facility] Allergies, Adverse Reactions, Alerts Allergy Name Allergy Type Status Severity Reaction(s) Onset Date Inactive Date Treating Clinician Comments Source Penicill ins Propensi ty to adverse reaction s Active Other - See comments 2015-05 00:00: [address], fever [facility] PENICILL INS Drug Class Active Hives 2015-05 00:00: 00 [facility] Penicill ins Propensi ty to adverse reaction s Active Other - See comments 2015-05 00:00: [address], fever [facility] Social History Social Habit Start Date Stop Date Quantity Comments Source ASSERTION 2023-06-29 00:00:00 [facility] intake 2023-08-13 00:00:00 2023-08-13 00:00:00 Ex-drinker (finding) [facility] History of Social function 2023-03-26 00:00:00 2023-03-26 00:00:00 [facility] Exposure to SARS-CoV-2 (event) 2022-03-26 00:00:00 2022-04-05 13:34:00 Not sure [facility] Tobacco use and exposure 2022-02-06 00:00:00 2022-02-06 00:00:00 Smokeless tobacco non-user [facility] History SDOH Alcohol Frequency 2020-02-29 00:00:00 2020-02-29 00:00:00 99 [facility] History SDOH Alcohol Std Drinks 2020-02-29 00:00:00 2020-02-29 00:00:00 99 [facility] History SDOH Alcohol Binge 2020-02-29 00:00:00 2020-02-29 00:00:00 99 [facility] Alcohol Comment 2020-02-29 00:00:00 2020-02-29 00:00:00 last drank alcohol in 11/2019 [facility] Sex Assigned At 2000 00:00:00 2000 00:00:00 [facility] Smoking Status Start Date Stop Date Source Never smoked tobacco [facility] Medications Ordered Medication Name Filled Medication Name Start Date Stop Date Current Medication? Ordering Clinician Indication Dosage Frequency Signature (SIG) Comments Components Source PNV 67-iron ps-folate no.1-dha (VITAFOL ULTRA) 29 mg iron- 1 mg-200 mg Cap 08-12 00:00: 00 Yes [id number] 1{capsu le} Take 1 capsule by mouth in the morning. [facility] proMETHazin e 25 mg tablet 08-12 00:00: 00 Yes [id number] 25mg Take 1 tablet by mouth every 4 (four) hours as needed for Nausea and Vomiting (N/V). [facility] azithromyci n (ZITHROMAX) 500 mg tablet 18 00:00: 00 07-22 04:59 :00 Yes [id number] 1000mg Take 2 tablets by mouth once now for 1 dose. [facility] azithromyci n (ZITHROMAX) 500 mg tablet 14 00:00: 00 07-18 04:59 :00 Yes [id number] 1000mg Take 2 tablets by mouth once now for 1 dose. [facility] etonogestre L 68 mg implant 2022-05 09:45: 49 03-26 00:00 :00 No 68mg 68 mg by Subdermal route once now. [facility] cyclobenzap rine 10 mg tablet 2021-05 00:00: 00 07-15 00:00 :00 No [id number] 10mg Take 1 tablet by mouth in the morning and 1 tablet at noon and 1 tablet in the evening. [facility] ketorolac 10 mg tablet 2021-05 00:00: 00 07-15 00:00 :00 No [id number] 10mg Take 1 tablet by mouth every 6 (six) hours as needed for Pain (scale 7-10). [facility] etonogestre L 68 mg implant 06-30 13:30: 19 Yes 68mg 68 mg by Subdermal route once now. [facility] azithromyci n 1 gram powder 2019-05 0-27 00:00: 00 03-03 00:00 :00 No [facility] ondansetron (ZOFRAN ODT) 4 mg disintegrat ing tablet 2019-05 0-22 00:00: 00 03-03 00:00 :00 No [id number] 4mg Take 1 tablet by mouth every 8 (eight) hours as needed for Nausea and Vomiting (N/V). [facility] acetaminoph en-codeine 300-30 mg tablet 2019-05 0- 00:00: 00 03-03 00:00 :00 No [facility] diclofenac 75 mg EC tablet 2019-05 0 00:00: 00 03-03 00:00 :00 No [facility] proMETHazin e 25 mg tablet 2019-05 0- 00:00: 00 03-03 00:00 :00 No [facility] ibuprofen 600 mg tablet 2019-05 0 00:00: 00 03-03 00:00 :00 No [facility] azithromyci n 250 mg tablet 2018-05 1-18 00:00: 00 03-03 00:00 :00 No [facility] Vital Signs Vital Name Observation Time Observation Value Comments S ource Systolic blood pressure 2023-08-13 20:18:00 115 mm[Hg] [facility] Diastolic blood pressure 2023-08-13 20:18:00 74 mm[Hg] [facility] Heart rate 2023-08-13 20:18:00 78 /min [facility] Body temperature 2023-08-13 20:18:00 36.33 Kassandra [facility] Respiratory rate 2023-08-13 20:18:00 16 /min [facility] Body height 2023-08-13 20:18:00 165.1 cm [facility] Body weight 2023-08-13 20:18:00 56.274 kg [facility] BMI 2023-08-13 20:18:00 20.65 kg/m2 [facility] Systolic blood pressure 2023-07-16 18:25:00 108 mm[Hg] [facility] Diastolic blood pressure 2023-07-16 18:25:00 74 mm[Hg] [facility] Heart rate 2023-07-16 18:25:00 89 /min [facility] Body temperature 2023-07-16 18:25:00 36.44 Kassandra [facility] Respiratory rate 2023-07-16 18:25:00 16 /min [facility] Body height 2023-07-16 18:25:[address] [facility] Body weight 2023-07-16 18:25:[address] [facility] BMI 2023-07-16 18:25:00 20.36 kg/m2 Univ [facility] Systolic blood pressure 2023-03-26 15:08:00 124 mm[Hg] [facility] Diastolic blood pressure 2023-03-26 15:08:00 70 mm[Hg] [facility] Heart rate 2023-03-26 15:08:00 98 /min [facility] Body temperature 2023-03-26 15:08:00 36.44 Kassandra [facility] Respiratory rate 2023-03-26 15:08:00 17 /min [facility] Body height 2023-03-26 15:08:[address] [facility] Body weight 2023-03-26 15:08:[address] [facility] BMI 2023-03-26 15:08:00 21.87 kg/m2 [facility] Systolic blood pressure 2022-04-06 15:34:00 114 mm[Hg] [facility] Diastolic blood pressure 2022-04-06 15:34:00 72 mm[Hg] [facility] Heart rate 2022-04-06 15:34:00 74 /min [facility] Respiratory rate 2022-04-06 15:34:00 18 /min [facility] Body height 2022-04-06 15:34:[address] [facility] Body weight 2022-04-06 15:34:[address] [facility] BMI 2022-04-06 15:34:00 20.80 kg/m2 Univ [facility] Oxygen saturation in Arterial blood by Pulse oximetry 2022-04-06 15:34:00 99 /min [facility] Systolic blood pressure 2022-04-03 21:16:00 104 mm[Hg] [facility] Diastolic blood pressure 2022-04-03 21:16:00 66 mm[Hg] [facility] Heart rate 2022-04-03 21:16:00 79 /min [facility] Body temperature 2022-04-03 21:16:00 37 Kassandra [facility] Respiratory rate 2022-04-03 21:16:00 19 /min [facility] Body height 2022-04-03 21:16:[address] [facility] Body weight 2022-04-03 21:16:[address] [facility] BMI 2022-04-03 21:16:00 20.47 kg/m2 Univ [facility] Oxygen saturation in Arterial blood by Pulse oximetry 2022-04-03 21:16:00 99 /min [facility] Systolic blood pressure 2022-02-06 15:09:00 109 mm[Hg] [facility] Diastolic blood pressure 2022-02-06 15:09:00 70 mm[Hg] [facility] Heart rate 2022-02-06 15:09:00 74 /min [facility] Body temperature 2022-02-06 15:09:00 36.72 Kassandra [facility] Respiratory rate 2022-02-06 15:09:00 18 /min [facility] Body height 2022-02-06 15:09:[address] [facility] Body weight 2022-02-06 15:09:[address] [facility] BMI 2022-02-06 15:09:00 21.79 kg/m2 Univ [facility] Procedures Procedure Date / Time Performed Performing Clinician Source POCT URINALYSIS W/O SPECIFIC GRAVITY 2023-07-16 18:28:00 Monserrat Hanson [facility] POCT TEST 2023-07-16 18:18:00 Di Hanson [facility] ASSIGNMENT OF BENEFITS 2023-07-16 18:12:21 Docarlet r Unassigned, [place] [facility] PATIENT FINANCIAL POLICY 2023-03-26 14:57:33 Doctor Unassigned, [place] [facility] INSURANCE CORRESPONDENCE 2022-04-11 06:01:00 Doc tor Unassigned, [place] [facility] ASSIGNMENT OF BENEFITS 2022-04-03 23:00:16 Docto r Unassigned, [place] [facility] XR ANKLE 3+ VW RIGHT 2022-04-03 22:08:49 Vickey Nguyen [facility] CONSENT/REFUSAL FOR DIAGNOSIS AND TREATMENT 2022-04-03 21:07:00 Doctor Unassigned, [place] [facility] Encounters Start Date/Time End Date/Time Encounter Type Admission Type Attending [facility] Care Facility Care Department Encounter ID Source 2021-03-04 00:31:56 Emergency [facility] [id number] [facility] 2023-08-26 14:45:00 2023-08-26 14:45:00 Outpatient P [facility] [id number] [facility] 2023-08-21 00:00:00 2023-08-21 00:00:00 Nurse Triage Celeste Wynne [facility] 1..840.114 350.1.13.10 4.2.7.2.686 [id number] [facility] 2023-08-13 15:00:00 2023-08-13 15:52:04 Outpatient R MONSERRAT HASNON [facility] [id number] [facility] 2023-08-13 15:00:00 2023-08-13 15:52:04 Routine Visit Monserrat Hanson [facility] BLENDING TECHNICIAN [facility]ILD [facility] 1.2.840.114 350.1.13.10 4.2.7.2.686 [id number] [facility] 2023-07-22 00:00:00 2023-07-22 00:00:00 Case Management AlexeyDi baldwineliel Lanza [facility] BLENDING TECHNICIAN [facility] CHILD [facility] 1.2.840.114 350.1.13.10 4.2.7.2.686 [id number] [facility] 2023-07-22 00:00:00 2023-07-22 00:00:00 Patient Secure Msg Monserrat Hanson [facility] BLENDING TECHNICIAN [facility] CHILD [facility] 1.2.840.114 350.1.13.10 4.2.7.2.686 [id number] [facility] 2023-07-18 00:00:00 2023-07-18 00:00:00 Telephone Monserrat Hanson [facility] BLENDING TECHNICIAN [facility] & CHILD [facility] 1.2.840.114 350.1.13.10 4.2.7.2.686 [id number] [facility] 2023-07-18 00:00:00 2023-07-18 00:00:00 Telephone Monserrat Hanson Janes [facility] BLENDING TECHNICIAN [facility] CHILD [facility] 1.2.840.114 350.1.13.10 4.2.7.2.686 [id number] [facility] 2023-07-16 13:00:00 2023-07-16 14:21:46 Initial Visit Monserrat Hanson [facility] BLENDING TECHNICIAN [facility] & CHILD [facility] 1.2.840.114 350.1.13.10 4.2.7.2.686 [id number] [facility] 2023-07-16 12:30:00 2023-07-16 13:18:57 Outpatient R MONSERRAT HANSON [facility] [id number] [facility] 2023-07-16 00:00:00 2023-07-16 00:00:00 Orders Only Doctor Unassigned, [place] [facility] 1.2840.114 350.1.13.10 4.2.7.2.686 [id number] [facility] 2023-04-09 15:15:45 2023-04-09 15:15:45 Outpatient [facility] [id number] Fernando Reynoso 2023-03-26 09:00:00 2023-03-26 09:42:29 Outpatient GLO CHOUDHURY [facility] [id number] [facility] 2023-03-26 09:00:00 2023-03-26 09:42:29 Office Visit Glo Hunter [facility] 1.84.114 350.1.13.10 4.2.7.2.686 [id number] [facility] 2023-03-26 00:00:00 2023-03-26 00:00:00 Orders Only Doctor Unassigned, [place] [facility] 1.284.114 350.1.13.10 4.2.7.2.686 [id number] [facility] 2023-03-19 09:00:00 2023-03-19 09:00:00 Outpatient GLO CHOUDHURY [facility] [id number] [facility] 2023-02-26 00:00:00 2023-02-26 00:00:00 Telephone AdGlo soto [facility] 1.84.114 350.1.13.10 4.2.7.2.686 [id number] [facility] 2022-06-08 11:20:00 2022-06-08 11:20:00 Outpatient IBIS ELAINE [facility] [id number] [facility] 2022-05-01 14:45:00 2022-05-01 14:45:00 Outpatient R MARI PICKERING [facility] [id number] [facility] 2022-04-27 10:30:00 2022-04-27 10:30:00 Outpatient R AMRI PICKERING [facility] [id number] [facility] 2022-04-12 00:00:00 2022-04-12 00:00:00 Outpatient R ROLF JENNIFERMERON ROLF, BRITTNEY [facility] [id number] [facility] 2022-04-11 00:00:00 2022-04-11 00:00:00 Orders Only Doctor Unassigned, [place] [facility] 1..840.114 350.1.13.10 4.2.7.2.686 [id number] [facility] 2022-04-06 09:00:00 2022-04-06 10:00:08 Outpatient R ROLF, JENNIFERMERON ROLF, BRITTNEY [facility] [id number] [facility] 2022-04-06 09:00:00 2022-04-06 10:00:08 Office [facility] Rolf [facility]idris [facility] 1..840.114 350.1.13.10 4.2.7.2.686 [id number] [facility] 2022-04-05 13:30:00 2022-04-05 13:30:00 Outpatient R KERVIN BORJA [facility] [id number] [facility] 2022-04-03 15:18:00 2022-04-03 17:35:00 Emergency X VICKEY NGUYEN [facility] E[facility] [id number] [facility] 2022-04-03 15:18:00 2022-04-03 17:35:00 Emergency Vickey Nguyen [facility] 1..840.114 350.1.13.10 4.2.7.2.686 [id number] [facility] 2022-02-23 11:30:00 2022-02-23 11:30:00 Outpatient R JULIETA OSBORNE CHERYAL [facility] [id number] [facility] 2022-02-20 11:15:00 2022-02-20 11:15:00 Outpatient R JULIETA OSBORNE CHERYAL [facility] [id number] [facility] 2022-02-06 09:30:00 2022-02-06 10:42:38 Outpatient R WILMER VIJI [facility] [id number] [facility] 2022-02-06 09:30:00 2022-02-06 10:42:38 Office Visit WilmerEvann [facility] 1.2.840.114 350.1.13.10 4.2.7.2.686 [id number] [facility] 2022-02-06 00:00:00 2022-02-06 00:00:00 Letter (Out) Evan Guillenn [facility] 1.2.840.114 350.1.13.10 4.2.7.2.686 [id number] [facility] 2021-07-26 11:30:00 2021-07-26 12:07:40 Office Visit Julieta Osborne [facility] 1.2.840.114 350.1.13.10 4.2.7.2.686 [id number] [facility] 2021-07-26 11:30:00 2021-07-26 12:07:40 Outpatient R JULIETA OSBORNE CHERYAL [facility] [id number] [facility] 2021-07-26 11:30:00 2021-07-26 11:30:00 Outpatient R ANAISJULIETA RICHARDSON ANAISJULIETA RICHARDSON [facility] [id number] [facility] 2021-07-26 00:00:00 2021-07-26 00:00:00 Letter (Out) Wilmer Viji [facility] 1.2.840.114 350.1.13.10 4.2.7.2.686 [id number] [facility] 2021-06-29 10:00:00 2021-06-29 10:40:33 Office Visit Wilmer Viji [facility] 1.2840.114 350.1.13.10 4.2.7.2.686 [id number] [facility] 2021-06-29 10:00:00 2021-06-29 10:40:33 Outpatient R WILMER VIJI [facility] [id number] [facility] 2021-06-29 10:00:00 2021-06-29 10:00:00 Outpatient R WILMER VIJI [facility] [id number] [facility] 2021-06-27 00:00:00 2021-06-27 00:00:00 Telephone Wilmer Viji [facility] 1.2.840.114 350.1.13.10 4.2.7.2.686 [id number] [facility] 2021-04-12 14:24:49 2021-04-12 14:46:10 Nurse Visit Nurse, Lkj [facility] 1.2.840.114 350.1.13.10 4.2.7.2.686 [id number] [facility] 2021-04-12 14:00:00 2021-04-12 14:00:00 Outpatient R VIJI GUILLEN [facility] [id number] [facility] 2021-04-12 09:00:00 2021-04-12 09:00:00 Outpatient R [facility] [id number] [facility] 2021-04-12 00:00:00 2021-04-12 00:00:00 Letter (Out) Viji Guillen [facility] 1.2.840.114 350.1.13.10 4.2.7.2.686 [id number] [facility] 2021-03-09 00:00:00 2021-03-09 00:00:00 Telephone Viji Guillen [facility] 1.2.840.114 350.1.13.10 4.2.7.2.686 [id number] [facility] 2021-03-07 00:00:00 2021-03-07 00:00:00 Case Management Viji Guillen [facility] 1.2.840.114 350.1.13.10 4.2.7.2.686 [id number] [facility] 2021-03-03 16:26:48 2021-03-03 16:41:48 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 Visit Bishop, Karey [facility] Main Viji Guillen [facility] 1.2.840.114 350.1.13.10 4.2.7.2.686 [id number] [facility] 2021-03-03 14:49:36 2021-03-03 16:03:08 Office Visit Viji Guillen [facility] 1.2840.114 350.1.13.10 4.2.7.2.686 [id number] [facility] 2021-03-03 14:30:00 2021-03-03 16:03:08 Outpatient R VIJI GIULLEN [facility] [id number] [facility] 2021-03-03 14:30:00 2021-03-03 16:03:08 Outpatient R VIJI GUILLEN [facility] [id number] [facility] 2021-03-03 00:00:00 2021-03-03 00:00:00 Orders Only Doctor Unassigned, [place] [facility] 1.20.114 350.1.13.10 4.2.7.2.686 [id number] [facility] 2021-03-03 00:00:00 2021-03-03 00:00:00 Letter (Out) Viji Guillen [facility] 1..114 350.1.13.10 4.2.7.2.686 [id number] [facility] 2020-09-09 14:30:00 2020-09-09 15:00:00 Office Visit Viji Guillen [facility] 1.2.114 350.1.13.10 4.2.7.2.686 [id number] [facility] 2020-09-09 14:30:00 2020-09-09 14:30:00 Outpatient R VIJI GUILLEN [facility] [id number] [facility] 2020-09-09 14:30:00 2020-09-09 14:30:00 Outpatient R VIJI GUILLEN [facility] [id number] [facility] 2020-03-05 00:00:00 2020-03-05 00:00:00 Nurse Triage Evangelista Ceron [facility] 1..114 350.1.13.10 4.2.7.2.686 [id number] [facility] 2020-03-04 15:37:05 2020-03-04 15:52:05 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 Visit Pob, Adc Lab Main Viji Guillen [facility] 1.2.114 350.1.13.10 4.2.7.2.686 [id number] [facility] 2020-03-04 14:31:32 2020-03-04 15:13:57 Office Visit Viji Guillen [facility] 1..114 350.1.13.10 4.2.7.2.686 [id number] [facility] 2020-03-04 14:30:00 2020-03-04 14:30:00 Outpatient R VIJI GUILLEN [facility] [id number] [facility] 2020-03-04 14:00:00 2020-03-04 14:00:00 Outpatient R WILMER VIJI [facility] [id number] [facility] 2020-03-04 00:00:00 2020-03-04 00:00:00 Orders Only Doctor Unassigned, [place] [facility] 1.114 350.1.13.10 4.2.7.2.686 [id number] [facility] 2020-03-04 00:00:00 2020-03-04 00:00:00 Letter (Out) Viji Guillen [facility] 1..114 350.1.13.10 4.2.7.2.686 [id number] [facility] 2020-03-03 00:00:00 2020-03-03 00:00:00 Orders Only Doctor Unassigned, [place] [facility] 1.114 350.1.13.10 4.2.7.2.686 [id number] [facility] 2020-03-01 00:00:00 2020-03-01 00:00:00 Case Management Viji Guillen [facility] 1.84.114 350.1.13.10 4.2.7.2.686 [id number] [facility] 2020-02-29 10:00:00 2020-02-29 10:00:00 Outpatient R VIJI GUILLEN [facility] [id number] Hillary christensen [facility] 2020-02-29 00:00:00 2020-02-29 00:00:00 Orders Only Doctor Unassigned, [place] [facility] 1.2.840.114 350.1.13.10 4.2.7.2.686 [id number] [facility] 2020-02-25 13:58:00 2020-02-25 17:32:00 Emergency BrayShobha jackson [facility] 1.2840.114 350.1.13.10 4.2.7.2.686 [id number] [facility] 2020-02-25 00:00:00 2020-02-25 00:00:00 Orders Only Doctor Unassigned, [facility] 1.2840.114 350.1.13.10 4.2.7.2.686 [id number] [facility] 2019-12-29 09:30:00 2019-12-29 09:30:00 Outpatient R JA[facility]AN [facility] [id number] [facility] 2019-12-15 09:00:00 2019-12-15 09:00:00 Outpatient R JAQUAN [facility] [id number] [facility] 2019-06-05 09:12:21 2019-06-05 09:31:03 Office Visit [facility] 1.2.840.114 350.1.13.10 4.2.7.2.686 [id number] [facility] 2019-06-05 09:12:21 2019-06-05 09:31:03 Office Visit [facility] [place] 1.2.840.114 350.1.13.10 4.2.7.2.686 [id number] Results Test Description Test Time Test Comments Results Result Co mments Source [id number] 18:18:00* Test Item Value Reference Range Interpretation Comme nts POCT PREG (test code = 1605) Positive On board controls acceptable with C Line (test code = 3574) Yes POCT PREG LOT # (test code = 3575) POCT PREG TEST DATE ( test code = 3576) [facility] ([facility]-19), RT-PCR/AFQ3762 15:36:12* Test Item Value Reference Range Interpretation Comments SARS-CoV-2 INTERPRETATION (test code = 55101) NEGATIVE SEE NOTE SARS-CoV-2 R NA NOT [...] prevalence is high. SOURCE (test code = 14836) NOT SPECIFIED Note: Methodolog y is Vonda Darryl Real-Time RT-PCR. The expected result or reference range is NEGATIVE (Not Detected). For more information regarding COVID-19 testing to include clinicalinformation, methodology detail, intended use, FDA authorization andrecommended fact sheets for patients or healthcare providers, see [employer] Announcement: SARS-CoV-2 (COVID-19) by NAAT at URL below (note,fact sheets are provided by method given in report:[email or web address] Alternatively, see downloadable PDF fact sheet at:https://www.[employer][email or web address] UNLESS OTHERWISE INDICATED, ALL TESTING PERFORMED [facility] Flickr, [facility]. [address] [place] [id number] [employer] GATHERER: BLAIRE NARANJO M.D. CONSTANCE NUMBER [id number] [place] [id number] Notes Date/Time Note Provider Source 2023-08-21 13:03:00 UPKKdBnPbaKAYLqR7dJ8 /ouXWmsIR4pNkt FXMbvtK5Njddq/in2ynLprq591EgYu8813 -04-17T13:03:00 Regarding: States lower abdominal pain, feels like stabbing pain, no bleeding or spotting----- Message from ROMINA Jimenez sent at 08/21/2023 1:03 PM CDT -----Jacques Ware is a 22 year old female9 weeks 60144-0Skbikxtbx encounter FwohSC1011-21-88O05:03:15Telephone encounter NoteTXT1.2.840.039172.1.13.104.2.7 .2.436688|[id number] for patient nalj58286-2ZiqaNZIBRKRWDIPYjazpavv d C-CDA narrative [id number] M Rea RN[address] Ifcp[id number] 60BIKQIGVNQPBHOEBEUEXAJX0208-87-55 T13:03:151.2.840.848676.1.72.3.15| 1.2.840.662849.1.13.104.2.7.2.7278 [id number] Celeste Wynne RN [facility] 2023-08-21 13:03:00 stmXf5uh3zUk4oxLINRy 6KNqyIf9NoCFUS uvAr3l6LgNFIGoTwOo7vFq2/opm4P16388 -04-17T13:03:00 Triage AssessmentLast Clinic Visit: 08/13/2023 Routine visitPrimary Symptom: abdominal painOnset / Duration: 3 daysLocation / Description: lower abdominal pain for past 3 days, stabbing feeling, "any time I try to use the bathroom it's worse" - constant painPain / Severity: 8ssociated Symptoms: deniesFever / Method: deniesHydration: most of 1 liter water bottle today; last void - 20 minutes - denies burning, but notes pain in abdomen worse when urinatingTreatment so far: TylenolEffect on ADL's: concerned - hasn't stopped her from doing anything she would normally do - "I can bare the pain but it's there"Gestational Weeks: 4r9nQittnwn Membranes: NABleeding / Spotting / Pads per hour: deniesFetal Movement: NAPara / : G7K8HRV: 03/21/2024re-existing condition / Immunocompromised: history of asthma; history of depression; chlamydia infection affecting ; Rh negative state in antepartum period; nausea and vomiting during .Advice given per Abdominal Pain Less Than 20 Weeks EGA Adult Protocol. Patient advised to see a provider within 4 hours. Patient declined appointment stating "I just want to know why I'm feeling these pains". RN explained that patient needs to be seen to determine this. Continues to decline appointment. Notes concerns about promethazine prescriptions stating "My pharmacy told me it could cause harm to the baby, so I haven't taken any of it". RN will forward to provider for review.Reason for Disposition[1] Constant abdominal pain AND [2] present > 2 hoursProtocols used: - Abdominal Pain Less Than 20 Weeks SFX-RITCC-JVOfzraqdirbnoff signed by Celeste Wynne RN at 08/21/2023 1:25 PM MSF74719-2Krusthkyx encounter TdtmDT6110-38-60R94:25:15Telephone encounter NoteTXT1.2.840.504032.1.13.104.2.7 .2.571487|[id number] for patient wkxo10806-4IbioMTKEEEIFFTZXuctfbrz d C-CDA narrative textUTMBCROWNPOINT HEALTHCARE F[facility] - [address] Ob[id number] 94AHIPSRBHXOICGLROHHLJAJ2652-00-97 T13:25:151.2.840.749481.1.72.3.15| 1.2.840.704918.1.13.104.2.7.2.7278 [id number] [facility] 2023-08-21 13:03:00 5IyKBB274TmizSPHvaGg ADFOrXCIo/0Jzb O1J4gQF842AcU02T8O0Z+TszsVaJPO6572 -04-17T13:03:00 Patient informed can take promethazine in . Patient stated she has been having constant lower abdominal pain x 3 days rated 8/10. Stated she vomited once today and is not able to eat d/t vomiting. Patient denies taking any pain medication, advised to be evaluated, verbalized understanding. 19463-9Grtevabnr encounter OcknPB2113-87-29N62:59:54Telephone encounter NoteTXT1.2.840.395327.1.13.104.2.7 .2.735137|[id number] for patient tycj24085-1TwekUKEGARILJHYMgnvyzzl d C-CDA narrative [id number] Garcia [address] Rg[id number] 77HDATEEDXEUYFTZBLEKPYMY3249-35-03 T13:59:541.2.840.918511.1.72.3.15| 1.2.840.199257.1.13.104.2.7.2.7278 [id number] Jenny Henriquez [facility] 2023-07-22 13:25:11 /VB6L4A257iWtPEg5GIG PCcXGlznhee9fx vVQ18lAazCGmZ1y0qGuXHBm4zYhZX96241 T13:25:11 Patient states she just threw up and asking what she should do?Please contact pt at [phone] (home) 73621-5Qljkvxmoa encounter PlbsWW4996-01-76I94:25:22Telephone encounter NoteTXT1.2.840.839198.1.13.104.2.7 .2.401363|[id number] for patient wzxn00400-7ThqgHLYAGDHTKZERxqwjfco d C-CDA narrative [id number] L [id number] 01KYAHIBIFSEBQNVXRQAVFPO3951-61-88 T13:25:221.2.840.370360.1.72.3.15| 1.2.840.479036.1.13.104.2.7.2.7278 [id number] [facility] 09:10:57 T0JUZMNOav2Ms9wRd3a+ lBmBKYJdQ/lT6G 2sbKJCPPDXZp0yCzmOlQ2uEw9jILzn6677 -03-14T09:10:57 Patient educated on results for chlamydia, verbalized understanding. 76924-8Vlyqegfps encounter PaqpXG0908-04-58L23:16:55Telephone encounter NoteTXT1.2.840.435682.1.13.104.2.7 .2.094677|[id number] for patient ddgk79600-9IsjtFBSNVBXBBWOYyfbggno d C-CDA narrative [id number] Garcia [id number] 26ULTEDOLSVETEVIFHCEKIBY3610-42-98 T09:16:551.2.840.657285.1.72.3.15| 1.2.840.433446.1.13.104.2.7.2.7278 [id number] Jenny Henriquez COMPLAINT ADJUSTER [facility] 2023-07-18 08:18:50 dF63eBGEDFY2OcCQnLEL no50PY6CU/qcke e0cRDUB5WvJL6B8Odv8CJMZoOvDUyR2439 -03-14T08:18:50 Notified the patient of her positive STI results Chlamydia.Notified the patient her medication has been sent to her pharmacy on file.Educated patient she should complete the entire course, advised patient to practice safe sex practices and to remain abstinent for at least 1-2 weeks post treatment.Patient desires to have partner treated.Name of partner: Eder Del Cid: 02/03/2001Phone number:[phone] std pamphlet for partner education. Patient declinedstd pamphlet to be mailed to partner.Partners addressAdvised patient on HIV testing if she has not recently been tested.Advised SHELBY appointment in 3 months. Pt verbalized understanding.Loreto Valdovinos RN 07/18/23 8:21 AM 43157-2Jbviocxmq encounter SixrQH9528-22-10L41:21:37Telephone encounter NoteTXT1.2.840.840382.1.13.104.2.7 .2.003325|[id number] for patient iuwn07043-2XirrWBFMFSLYJUZBjmmnrfx d C-CDA narrative [id number] Hernandez RN[address] Ks[id number] 01OPCLGDDXGSATVCYULOJMMU9394-95-77 T08:21:371.2.840.349029.1.72.3.15| 1.2.840.494851.1.13.104.2.7.2.7278 [id number] Loreto Valdovinos RN [facility] 2023-07-18 08:03:58 U1HoFF5P/a9EtA5tY/92 t67dgq/JT4eVNe kqj4RLJQEJkyFUT0NGl+DouglasJu+Dc76092 T08:03:58 Pt tested positive for chlamydia. Prescription for zithromax routed to her pharmacy on file/ordered for clinic pickup/administration. Please notify patient of results. Her partner needs to be notified and should be encouraged to follow up with his PCP or may come to [facility] for treatment. If the partner is unwilling [...] (if will need SHELBY in 3-4 weeks). 16937-9Vcttltouz encounter CuriLN8170-90-24Q60:04:58Telephone encounter NoteTXT1.2.840.631405.1.13.104.2.7 .2.917508|[id number] for patient nqfl78559-9HegdDQZCEKFJWHDSqqabxsu d C-CDA narrative text[address] XehkOhecgbjetOgkrkxpwhSHRQ56927517 95KITDXGRWMMMHXFUOZBXKOJ7124-39-68 T08:04:581.2.840.671394.1.72.3.15| 1.2.840.487396.1.13.104.2.7.2.7278 [id number] [facility]
[2023-08-21] MEDS ORDERED: NA CHLORIDE 0.9% 1,000 ML ONE (15:56)
--- NOTE | 2023-08-21 16:09 | RAD REPORT ---
EXAM DESCRIPTION: US - Transvaginal OB - 08/21/2023 3:46 pm CLINICAL HISTORY: ABD PAIN COMPARISON: No comparisons FINDINGS: A single gestational sac is seen within the uterus. The shape of the sac is within normal limits for gestational age. Within the sac is a single pole with crown-rump length of 2.7 cm, c orrelating to estimated gestational age of 9 weeks 4 days. Estimated date of delivery is 03/21/2024. Heart rate is 153 BPM. The placenta is not yet developed due to early gestational age. The maternal adnexa and ovaries are within normal limits. Normal Doppler blood flow was demonstrated to both ovaries. IMPRESSION: Single live early intrauterine gestation with estimated gestational age of 9 weeks and 4 days, PAULO 03/21/2024. Small subchorionic bleed.
[2023-08-21 16:15] LABS: Absolute Eosinophils 0.1 K/uL (0-0.5); Absolute Lymphocytes (CBC) 1.2 K/uL (0.7-4.9); Absolute Monocytes 0.4 K/uL (0.1-1.3); Absolute Neutrophil 4.5 K/uL (1.8-8.0); Basophils % 0.4 % (0-1.3); Hematocrit 38.9 % (36.0-45.0); Hemoglobin 12.8 g/dL (12.0-15.0); Lymphocytes % 19.7 % (15.3-44.8); MCH 30.5 pg (27.0-35.0); MCHC 32.8 g/dL (32.0-36.0); MCV 92.9 fL (80-100); MPV 9.5 fL (7.6-11.3); Monocytes % 6.3 % (3.3-12.3); Neutrophils % 72.6 % (41.7-73.7); Platelets 201 thou/uL (152-406); RBC Red Blood Cell Count 4.19 M/uL (3.86-4.86); Red Cell Distribution Width 12.9 % (12.1-15.2)
[2023-08-21 16:33] LABS: Specific Gravity 1.015 (1.005-1.030)
[2023-08-21 16:36] LABS: Anion Gap 6.9 mEq/L (5.0-15.0); Potassium 3.9 mEq/L (3.5-5.1)
[2023-08-21 16:52] LABS: Specific Gravity 1.015 (1.005-1.030); Sqamous Epithelial <5 /HPF (None Seen); Urine Bacteria <20 /HPF (<20); Urine Bilirubin NEGATIVE (Negative); Urine Blood Negative (Negative); Urine Clarity Turbid (Clear); Urine Color Light-Yellow (Yellow); Urine Culture Reflex Order NOT NEEDED; Urine Glucose NEGATIVE (Negative); Urine Ketones 2+ (Negative); Urine Microscopic Reflex YN ORDER UMIC; Urine Mucus Slight /HPF (None Seen); Urine Nitrite NEGATIVE (Negative); Urine Protein NEGATIVE (Negative); Urine RBC <5 /HPF (None Seen); Urine Urobilinogen Normal (Normal); Urine WBC <5 /HPF (<5)
--- NOTE | 2023-08-21 18:57 | ER ---
Nurse's Notes [facility] Name: Desiree Osman Age: 22 yrs Sex: Female : 2000 Arrival Date: 08/21/2023 Time: 14:53 Bed 11 Private MD: Diagnosis: Lower abdominal pain, unspecified;9 weeks gestation of Presentation: 08/20 15:00 Chief complaint: Patient states: abd pain x 2 days, getting worse, no discharge or ko1 bleeding. Coronavirus screen: At this time, the client does not indicate any symptoms associated with coronavirus-19. Ebola Screen: No symptoms or risks identified at this time. Initial Sepsis Screen: Does the patient meet any 2 criteria? No. Patient's initial sepsis screen is negative. Does the patient have a suspected source of infection? No. Patient's initial sepsis screen is negative. Risk Assessment: Do you want to hurt yourself or someone else? Patient reports no desire to harm self or others. Onset of symptoms is unknown. 15:00 Method Of Arrival: Ambulatory ko1 15:00 Acuity: RAIMUNDO 3 ko1 Triage Assessment: 15:02 General: Appears in no apparent distress. Behavior is calm, cooperative, appropriate ko1 for age. Pain: Complains of pain in suprapubic area and right lower quadrant. GI: Reports nausea, vomiting. SAXOPHONE ASSEMBLER: 17:42 Verified as6 Historical: - Allergies: 15:02 PENICILLINS; ko1 - PMHx: 15:02 Asthma; ko1 - Immunization history:: Adult Immunizations up to date. - Infectious Disease History:: Denies. - Social history:: Smoking status: Patient denies any tobacco usage or history of. Screenin:18 [facility] ED Fall Risk Assessment (Adult) History of falling in the last 3 months, as6 including since admission No falls in past 3 months (0 pts) Confusion or Disorientation No (0 pts) Intoxicated or Sedated No (0 pts) Impaired Gait No (0 pts) Mobility Assist Device Used No (0 pt) Altered Elimination No (0 pt) Score/Fall Risk Level 0 - 2 = Low Risk Oriented to surroundings, Maintained a safe environment, Educated pt \T\ family on fall prevention, incl call for assistance when getting out of bed, Assessed \T\ reinforced patient's understanding of fall precautions. Abuse screen: Denies threats or abuse. Denies injuries from another. Nutritional screening: No deficits noted. Tuberculosis screening: No symptoms or risk factors identified. Assessment: 15:10 General: lab work delayed due to pt being in US. as6 16:05 Reassessment: Patient appears in no apparent distress at this time. Patient and/or as6 family updated on plan of care and expected duration. Pain level reassessed. Patient is alert, oriented x 3, equal unlabored respirations, skin warm/dry/pink. Pain: Complains of pain in abdomen Quality of pain is described as sharp, shooting, stabbing. 17:06 General: called lab to notify on RhoGAM order . as6 17:42 Reassessment: Patient appears in no apparent distress at this time. Patient and/or as6 family updated on plan of care and expected duration. Pain level reassessed. Patient is alert, oriented x 3, equal unlabored respirations, skin warm/dry/pink. 18:51 Reassessment: Patient appears in no apparent distress at this time. as6 Vital Signs: 15:00 BP 100 / 61; Pulse 72; Resp 16; Temp 97; Pulse Ox 99% ; ko1 16:06 BP 90 / 75; Pulse 80; Resp 18 S; Pulse Ox 99% on R/A; as6 17:00 BP 102 / 66; Pulse 75; Resp 18 S; Pulse Ox 99% on R/A; as6 17:42 BP 96 / 58; Pulse 74; Resp 15 S; Pulse Ox 100% on R/A; as6 18:51 BP 103 / 66; Pulse 75; Resp 16 S; Pulse Ox 100% on R/A; as6 ED Course: 14:58 Patient arrived in ED. mg5 14:58 Barbara Escoto FNP-C is PHCP. kb 14:58 Benjamin Kramer MD is Attending Physician. kb 15:02 Triage completed. ko1 15:02 Arm band placed on right wrist. Patient placed in an exam room, on a stretcher, on ko1 pulse oximetry, Patient notified of wait time. 15:05 Gary Lopez, AARON is Primary Nurse. as6 15:42 US Transvaginal Ob In Process Unspecified. EDMS 16:00 Inserted saline lock: 20 gauge in right antecubital area, using aseptic technique. as6 Blood collected. 16:05 Bed in low position. Call light in reach. as6 16:05 Abo/rh Typing Sent. as6 16:05 Basic Metabolic Panel Sent. as6 16:05 CBC with Diff Sent. as6 16:05 Quantitative Hcg Sent. as6 17:00 Provided Education on: follow up. as6 17:42 No provider procedures requiring assistance completed. as6 19:01 IV discontinued, intact, bleeding controlled, No redness/swelling at site. Pressure as6 dressing applied. Administered Medications: 16:05 Drug: NS 0.9% IV 1000 ml IV at 1000 ml once Route: IV; Rate: 1000 ml; Site: right as6 antecubital; 17:43 Follow up: Response: No adverse reaction; IV Status: Completed infusion; IV Intake: as6 1000ml 18:52 Drug: Rho D Immune Globulin IM 300 mcg IM once Route: IM; Site: right deltoid; as6 19:01 Follow up: Response: No adverse reaction as6 Medication: 15:19 VIS not applicable for this client. as6 Intake: 17:43 IV: 1000ml; Total: 1000ml. as6 Outcome: 17:00 Condition: stable as6 18:56 Discharge ordered by . shawn 19:01 Discharged to home ambulatory, with significant other, as6 19:01 Discharge instructions given to patient, Instructed on discharge instructions, follow up and referral plans. Demonstrated understanding of instructions, follow-up care, 19:02 Patient left the ED. as6 Signatures: Dispatcher [employer] Barbara Landry, MARK HORNE-Gary Valentino RN RN as6 Zainab Claudio RN RN Tabitha Encinas mg5
--- NOTE | 2023-08-21 18:57 | EDPHYS ---
Physician Documentation [facility] Name: Desiree Osman Age: 22 yrs Sex: Female : 2000 Arrival Date: 08/21/2023 Time: 14:53 Bed 11 Private MD: ED Physician Benjamin Kramer HPI: 08/20 17:17 This 22 yrs old Female presents to ER via Ambulatory with complaints of kb Preg-9wks, Abdominal Pain. 17:17 Pt is a 22 year old female who presents with lower abd pain that started 2 days ago. kb Denies vaginal bleeding or discharge. Denies urinary symptoms. DESK EDITOR: 17:42 Verified as6 Historical: - Allergies: 15:02 PENICILLINS; ko1 - PMHx: 15:02 Asthma; ko1 - Immunization history:: Adult Immunizations up to date. - Infectious Disease History:: Denies. - Social history:: Smoking status: Patient denies any tobacco usage or history of. ROS: 17:01 Constitutional: As per HPI kb Exam: 17:01 Constitutional: This is a well developed, well nourished patient who is awake, alert, kb and in no acute distress. Head/Face: Normocephalic, atraumatic. ENT: Moist Mucous membranes Cardiovascular: Regular rate Respiratory: Respirations even and unlabored. No increased work of breathing. Talking in full sentences Skin: Warm, dry with normal turgor. Normal color. MS/ Extremity: Pulses equal, no cyanosis. Neurovascular intact. Full, normal range of motion. Neuro: Awake and alert, GCS 15, oriented to person, place, time, and situation. Moves all extremities. Normal gait. 17:01 Abdomen/GI: Inspection: abdomen appears normal, Bowel sounds: normal, Palpation: moderate abdominal tenderness, in the suprapubic area, Vital Signs: 15:00 BP 100 / 61; Pulse 72; Resp 16; Temp 97; Pulse Ox 99% ; ko1 16:06 BP 90 / 75; Pulse 80; Resp 18 S; Pulse Ox 99% on R/A; as6 17:00 BP 102 / 66; Pulse 75; Resp 18 S; Pulse Ox 99% on R/A; as6 17:42 BP 96 / 58; Pulse 74; Resp 15 S; Pulse Ox 100% on R/A; as6 18:51 BP 103 / 66; Pulse 75; Resp 16 S; Pulse Ox 100% on R/A; as6 MDM: 14:58 Patient medically screened. kb 17:01 Data reviewed: vital signs, nurses notes. kb 17:15 Differential diagnosis: ectopic , spontaneous , gastroenteritis. kb Management of patient was discussed with the following: Discussed with Dr Kramer who recommends Rhogam and follow up. Counseling: I had a detailed discussion with the patient and/or guardian regarding the historical points, exam findings, and any diagnostic results supporting the discharge/admit diagnosis, lab results, radiology results, the need for outpatient follow up, an OB/Gyne specialist, to return to the emergency department if symptoms worsen or persist or if there are any questions or concerns that arise at home. 08/20 14:59 Order name: Abo/rh Typing; Complete Time: 18:56 kb 08/20 14:59 Order name: Basic Metabolic Panel; Complete Time: 16:59 kb 08/20 14:59 Order name: CBC with Diff; Complete Time: 16:17 kb 08/20 14:59 Order name: Test, Urine; Complete Time: 16:40 kb 08/20 14:59 Order name: Quantitative Hcg; Complete Time: 16:59 kb 08/20 14:59 Order name: Urinalysis w/ reflexes; Complete Time: 16:59 kb 08/20 17:03 Order name: Rhogam 08/20 17:06 Order name: Rh Typing [facility] 08/20 17:06 Order name: Antibody Screen [facility] 08/20 17:06 Order name: Fetalscreen [facility] 08/20 17:06 Order name: Cord Rh type [facility] 08/20 14:59 Order name: US Transvaginal Ob; Complete Time: 16:10 kb 08/20 14:59 Order name: IV Saline Lock; Complete Time: 16:05 kb 08/20 14:59 Order name: Labs collected and sent; Complete Time: 16:05 kb 08/20 14:59 Order name: NPO; Complete Time: 16:05 kb Administered Medications: 16:05 Drug: NS 0.9% IV 1000 ml IV at 1000 ml once Route: IV; Rate: 1000 ml; Site: right as6 antecubital; 17:43 Follow up: Response: No adverse reaction; IV Status: Completed infusion; IV Intake: as6 1000ml 18:52 Drug: Rho D Immune Globulin IM 300 mcg IM once Route: IM; Site: right deltoid; as6 19:01 Follow up: Response: No adverse reaction as6 Disposition Summary: 08/21/23 18:56 Discharge Ordered Notes: Location: Home kb Condition: Stable kb Diagnosis - Lower abdominal pain, unspecified kb - 9 weeks gestation of kb Followup: kb - With: Emergency Department - When: As needed - Reason: Worsening of condition Followup: kb - With: Private Physician - When: 2 - 3 days - Reason: Recheck today's complaints, Continuance of care, Re-evaluation by your physician Discharge Instructions: - Discharge Summary Sheet kb - Abdominal Pain During kb - First Trimester of , Ssmr-hn-Bcjb kb Forms: - Medication Reconciliation Form kb - Thank You Letter kb - Antibiotic Education kb - Prescription Opioid Use kb - Patient Portal Instructions kb - Leadership Thank You Letter kb Addendum: 08/23/2023 01:02 I was immediately available for consultation during this patient's visit. I did not e c2 personally see the patient or discuss the patient with the ANTHONY. . Signatures: Dispatcher [employer] Barbara Landry, AUTOMOBILE SERVICE STATION MANAGER-C [employer] SERVICE STATION MANAGER-Gary Valentino RN RN as6 Zainab Claudio RN RN ko1 Benjamin Kramer MD MD ec2
[2023-08-22 03:27] VITALS: BP 103/66; TEMP 97; O2SAT 100
== END 2023-08-21 19:02 | disposition home or self-care (01) ==
LOC: ER 14:53
DX: O26.891 Other specified pregnancy related conditions, first trimester (principal); Z3A.09 9 weeks gestation of pregnancy; Z88.0 Allergy status to penicillin
CPT/HCPCS: 85025; 81001; 80048; 36415; 86900; 86850; 81025; 85461; 86901 ×2; 84702; 76817; J2790; J7030

== ENCOUNTER 2023-09-01 13:44 | Emergency (ER) | payer OTHER ==
--- OUTSIDE RECORDS SUMMARY | 2023-09-01 13:48 | XMS REPORT | Continuity of Care Document ---
Author Name Unknown Address [address] [facility] [address] [place] [address] [facility] thconnect Address [address] [facility] [address] [place] [address] Care Team Providers Care Belt Operator Name Role Phone Pcp, Patient Does Not Have A Primary Care Physic madi GLO HUNTER Attending Clinician Unavailable MONSERRAT HANSON Attending Clinician Monserrat Tovar CNM Attending Clinician [phone] LA AMADO Attending Clinician Celeste Torres RN Attending Clinician Unavailable Doctor Unassigned, [place] Attending Clinician U Glo Anton MD Attending Clinician [phone] IBSI MARTINEZ Attending Clinician Unavailable MARI PICKERING Attending Clinician Unavailable ZAYNAB BANSAL Attending Clinician Unavailab ZAYNAB Shirley Attending Clinician Unavailab KERVIN Wilson Attending Clinician Unavailable VICKEY NGUYEN Attending Clinician Unavailable Vickey Stallings Attending Clinician [phone] JULIETA OSBORNE Attending Clinician Unavaila JULIETA Bhakta Attending Clinician Unavaila VIJI Rushing Attending Clinician Unavailable Viji Guillen MD Attending Clinician [phone] Nurse, [facility] Attending Clinician Unavailable Pob, [facility] Main Attending Clinician Unavailcarlos Ceron RN, Evangelista Attending Clinician Unavailab Shobha Ralph Attending Clinician [phone] Dayton Bernstein MD Attending Clinician [phone] VICKEY NGUYEN Admitting Clinician Unavailable Payers Payer Name Policy Type Policy Number Effective Date Expirati on Date Source [facility] [id number] 00:00:00 Problems Condition Name Condition Details Condition Category Status Onset Date Resolution Date Last Treatment Date Treating Clinician Comments Source Nausea and vomiting during Nausea and vomiting during Disease Active 4-10 00:00: 00 [facility] Rh negative state in antepartum period Rh negative state in antepartum period Disease Active 4-09 00:00: 00 [facility] Chlamydia infection affecting Chlamydia infection affecting Disease Active -14 00:00: 00 [facility] History of asthma History of asthma Disease Active -12 00:00: 00 [facility] History of depression History of depression Disease Active -12 00:00: 00 [facility] General counseling and advice on female contracept ion General counseling and advice on female contracept ion Disease Active - 00:00: 00 [facility] Nexplanon in place Nexplanon in place Disease Active 07-26 00:00: 00 [facility] Encounter for assessment of STD exposure Encounter for assessment of STD exposure Disease Active 2020-05 0 00:00: 00 [facility] Allergies, Adverse Reactions, Alerts Allergy Name Allergy Type Status Severity Reaction(s) Onset Date Inactive Date Treating Clinician Comments Source Penicill ins Propensi ty to adverse reaction s Active Other - See comments 2015-05 00:00: [address], fever [facility] PENICILL INS Drug Class Active Hives 2015-05 00:00: 00 [facility] Penicill ins Propensi ty to adverse reaction s Active Other - See comments 2015-05 00:00: [address], fever [facility] Social History Social Habit Start Date Stop Date Quantity Comments Source ASSERTION 2023-06-29 00:00:00 [facility] intake 2023-08-13 00:00:00 2023-08-13 00:00:00 Ex-drinker (finding) [facility] History of Social function 2023-03-26 00:00:00 2023-03-26 00:00:00 [facility] Exposure to SARS-CoV-2 (event) 2022-03-26 00:00:00 2022-04-05 13:34:00 Not sure [facility] Tobacco use and exposure 2022-02-06 00:00:00 2022-02-06 00:00:00 Smokeless tobacco non-user [facility] History SDOH Alcohol Frequency 2020-02-29 00:00:00 2020-02-29 00:00:00 99 [facility] History SDOH Alcohol Std Drinks 2020-02-29 00:00:00 2020-02-29 00:00:00 99 [facility] History SDOH Alcohol Binge 2020-02-29 00:00:00 2020-02-29 00:00:00 99 [facility] Alcohol Comment 2020-02-29 00:00:00 2020-02-29 00:00:00 last drank alcohol in 11/2019 [facility] Sex Assigned At 2000 00:00:00 2000 00:00:00 [facility] Smoking Status Start Date Stop Date Source Never smoked tobacco [facility] Medications Ordered Medication Name Filled Medication Name Start Date Stop Date Current Medication? Ordering Clinician Indication Dosage Frequency Signature (SIG) Comments Components Source PNV 67-iron ps-folate no.1-dha (VITAFOL ULTRA) 29 mg iron- 1 mg-200 mg Cap - 00:00: 00 Yes [id number] 1{capsu le} Take 1 capsule by mouth in the morning. [facility] proMETHazin e 25 mg tablet 08-12 00:00: 00 Yes [id number] 25mg Take 1 tablet by mouth every 4 (four) hours as needed for Nausea and Vomiting (N/V). [facility] azithromyci n (ZITHROMAX) 500 mg tablet 07-21 00:00: 00 07-22 04:59 :00 Yes [id number] 1000mg Take 2 tablets by mouth once now for 1 dose. [facility] azithromyci n (ZITHROMAX) 500 mg tablet 07-17 00:00: 00 07-18 04:59 :00 Yes [id number] 1000mg Take 2 tablets by mouth once now for 1 dose. [facility] etonogestre L 68 mg implant 2022-05 09:45: 49 03-26 00:00 :00 No 68mg 68 mg by Subdermal route once now. [facility] cyclobenzap rine 10 mg tablet 2021-05 00:00: 00 07-15 00:00 :00 No [id number] 10mg Take 1 tablet by mouth in the morning and 1 tablet at noon and 1 tablet in the evening. [facility] ketorolac 10 mg tablet 2021-05 00:00: 00 07-15 00:00 :00 No [id number] 10mg Take 1 tablet by mouth every 6 (six) hours as needed for Pain (scale 7-10). [facility] etonogestre L 68 mg implant 06-30 13:30: 19 Yes 68mg 68 mg by Subdermal route once now. [facility] azithromyci n 1 gram powder 2019-05 0-27 00:00: 00 03-03 00:00 :00 No [facility] ondansetron (ZOFRAN ODT) 4 mg disintegrat ing tablet 2019-05 0-22 00:00: 00 03-03 00:00 :00 No [id number] 4mg Take 1 tablet by mouth every 8 (eight) hours as needed for Nausea and Vomiting (N/V). [facility] acetaminoph en-codeine 300-30 mg tablet 2019-05 0-21 00:00: 00 03-03 00:00 :00 No [facility] diclofenac 75 mg EC tablet 2019-05 020 00:00: 00 03-03 00:00 :00 No [facility] proMETHazin e 25 mg tablet 2019-05 0 00:00: 00 03-03 00:00 :00 No [facility] ibuprofen 600 mg tablet 2019-05 0-19 00:00: 00 03-03 00:00 :00 No [facility] azithromyci n 250 mg tablet 2018-05 1-18 00:00: 00 03-03 00:00 :00 No [facility] Vital Signs Vital Name Observation Time Observation Value Comments S ource Systolic blood pressure 2023-08-13 20:18:00 115 mm[Hg] [facility] Diastolic blood pressure 2023-08-13 20:18:00 74 mm[Hg] [facility] Heart rate 2023-08-13 20:18:00 78 /min [facility] Body temperature 2023-08-13 20:18:00 36.33 Kassandra [facility] Respiratory rate 2023-08-13 20:18:00 16 /min [facility] Body height 2023-08-13 20:18:00 165.1 cm [facility] Body weight 2023-08-13 20:18:00 56.274 kg [facility] BMI 2023-08-13 20:18:00 20.65 kg/m2 [facility] Systolic blood pressure 2023-07-16 18:25:00 108 mm[Hg] [facility] acute hospital Diastolic blood pressure 2023-07-16 18:25:00 74 mm[Hg] [facility] acute hospital Heart rate 2023-07-16 18:25:00 89 /min Un[facility] Body temperature 2023-07-16 18:25:00 36.44 Kassandra [facility] Respiratory rate 2023-07-16 18:25:00 16 /min [facility] Body height 2023-07-16 18:25:[address] [facility] Body weight 2023-07-16 18:25:[address] [facility] BMI 2023-07-16 18:25:00 20.36 kg/m2 [facility] Systolic blood pressure 2023-03-26 15:08:00 124 mm[Hg] [facility] acute hospital Diastolic blood pressure 2023-03-26 15:08:00 70 mm[Hg] General acute hospital Heart rate 2023-03-26 15:08:00 98 /min Unive [facility] Body temperature 2023-03-26 15:08:00 36.44 Kassandra [facility] Respiratory rate 2023-03-26 15:08:00 17 /min [facility] Body height 2023-03-26 15:08:[address] [facility] Body weight 2023-03-26 15:08:[address] [facility] BMI 2023-03-26 15:08:00 21.87 kg/m2 [facility] Systolic blood pressure 2022-04-06 15:34:00 114 mm[Hg] General acute hospital Diastolic blood pressure 2022-04-06 15:34:00 72 mm[Hg] General acute hospital Heart rate 2022-04-06 15:34:00 74 /min Unive [facility] Respiratory rate 2022-04-06 15:34:00 18 /min [facility] Body height 2022-04-06 15:34:[address] [facility] Body weight 2022-04-06 15:34:[address] [facility] BMI 2022-04-06 15:34:00 20.80 kg/m2 [facility] Oxygen saturation in Arterial blood by Pulse oximetry 2022-04-06 15:34:00 99 /min [facility] hospital Systolic blood pressure 2022-04-03 21:16:00 104 mm[Hg] [facility] acute hospital Diastolic blood pressure 2022-04-03 21:16:00 66 mm[Hg] General acute hospital Heart rate 2022-04-03 21:16:00 79 /min Unive [facility] Body temperature 2022-04-03 21:16:00 37 Kassandra [facility] Respiratory rate 2022-04-03 21:16:00 19 /min [facility] Body height 2022-04-03 21:16:[address] [facility] Body weight 2022-04-03 21:16:00 55.792 kg [facility] BMI 2022-04-03 21:16:00 20.47 kg/m2 [facility] Oxygen saturation in Arterial blood by Pulse oximetry 2022-04-03 21:16:00 99 /min [facility] acute hospital Systolic blood pressure 2022-02-06 15:09:00 109 mm[Hg] General acute hospital Diastolic blood pressure 2022-02-06 15:09:00 70 mm[Hg] General acute hospital Heart rate 2022-02-06 15:09:00 74 /min Unive [facility] Body temperature 2022-02-06 15:09:00 36.72 Kassandra [facility] Respiratory rate 2022-02-06 15:09:00 18 /min [facility] Body height 2022-02-06 15:09:00 160 cm [facility] Body weight 2022-02-06 15:09:00 55.792 kg [facility] BMI 2022-02-06 15:09:00 21.79 kg/m2 [facility] Procedures Procedure Date / Time Performed Performing Clinician Source POCT URINALYSIS W/O SPECIFIC GRAVITY 2023-07-16 18:28:00 Monserrat Hanson [facility] POCT TEST 2023-07-16 18:18:00 Di Hanson [facility] ASSIGNMENT OF BENEFITS 2023-07-16 18:12:21 Docto r Unassigned, [place] [facility] PATIENT FINANCIAL POLICY 2023-03-26 14:57:33 Doctor Unassigned, [place] [facility] INSURANCE CORRESPONDENCE 2022-04-11 06:01:00 Doc tor Unassigned, [place] [facility] ASSIGNMENT OF BENEFITS 2022-04-03 23:00:16 Docto r Unassigned, [place] [facility] XR ANKLE 3+ VW RIGHT 2022-04-03 22:08:49 Vickey Nguyen [facility] CONSENT/REFUSAL FOR DIAGNOSIS AND TREATMENT 2022-04-03 21:07:00 Doctor Unassigned, [place] [facility] Encounters Start Date/Time End Date/Time Encounter Type Admission Type Attending [facility] Care Facility Care Department Encounter ID Source 2021-03-04 00:31:56 Emergency [facility] [id number] [facility] 2023-08-27 00:00:00 2023-08-27 00:00:00 Case Management Monserrat Hanson [facility] 1..840.114 350.1.13.10 4.2.7.2.686 [id number] [facility] 2023-08-26 14:45:00 2023-08-26 14:45:00 Outpatient LA GOMES [facility] [id number] [facility] 2023-08-21 00:00:00 2023-08-21 00:00:00 Nurse Triage Celeste Wynne [facility] 1..840.114 350.1.13.10 4.2.7.2.686 [id number] [facility] 2023-08-13 15:00:00 2023-08-13 15:52:04 Outpatient R MONSERRAT HANSON [facility] [id number] [facility] 2023-08-13 15:00:00 2023-08-13 15:52:04 Routine Visit AlexeyDi baldwinnda Myla [facility] 1.2.840.114 350.1.13.10 4.2.7.2.686 [id number] [facility] 2023-07-22 00:00:00 2023-07-22 00:00:00 Case Management VickyMonserrat torres [facility] 1.2.840.114 350.1.13.10 4.2.7.2.686 [id number] [facility] 2023-07-22 00:00:00 2023-07-22 00:00:00 Patient Secure Msg VickyMonserrat torres [facility] 1.2.840.114 350.1.13.10 4.2.7.2.686 [id number] [facility] 2023-07-18 00:00:00 2023-07-18 00:00:00 Telephone VickyMonserrat torres [facility] 1.2.840.114 350.1.13.10 4.2.7.2.686 [id number] [facility] 2023-07-18 00:00:00 2023-07-18 00:00:00 Telephone VickyMonserrat torres [facility] 1.2.840.114 350.1.13.10 4.2.7.2.686 [id number] [facility] 2023-07-18 00:00:00 2023-07-18 00:00:00 Patient Secure [facility] VickySantiago torresa Myla [facility] 1.2840.114 350.1.13.10 4.2.7.2.686 [id number] [facility] 2023-07-16 13:00:00 2023-07-16 14:21:46 Initial Visit Monserrat Hanson [facility] 1.840.114 350.1.13.10 4.2.7.2.686 [id number] [facility] 2023-07-16 12:30:00 2023-07-16 13:18:57 Outpatient R MONSERRAT HANSON [facility] [id number] [facility] 2023-07-16 00:00:00 2023-07-16 00:00:00 Orders Only Doctor Unassigned, [place] [facility] 1.840.114 350.1.13.10 4.2.7.2.686 [id number] [facility] 2023-04-09 15:15:45 2023-04-09 15:15:45 Outpatient [facility] [id number] Fernando Reynoso 2023-03-26 09:00:00 2023-03-26 09:42:29 Outpatient R GLO HUNTER [facility] [id number] [facility] 2023-03-26 09:00:00 2023-03-26 09:42:29 Office Visit Glo Hunter [facility] 1..114 350.1.13.10 4.2.7.2.686 [id number] [facility] 2023-03-26 00:00:00 2023-03-26 00:00:00 Orders Only Doctor Unassigned, [place] [facility] 1.20.114 350.1.13.10 4.2.7.2.686 [id number] [facility] 2023-03-19 09:00:00 2023-03-19 09:00:00 Outpatient R GLO HUNTER [facility] [id number] [facility] 2023-02-26 00:00:00 2023-02-26 00:00:00 Telephone Glo Hunter [facility] .840.114 350.1.13.10 4.2.7.2.686 [id number] 134 [id number] [facility] 2022-06-08 11:20:00 2022-06-08 11:20:00 Outpatient R IBIS MARTINEZ [facility] [id number] [facility] 2022-05-01 14:45:00 2022-05-01 14:45:00 Outpatient MARI STEPHENSON [facility] [id number] [facility] 2022-04-27 10:30:00 2022-04-27 10:30:00 Outpatient MARI STEPHENSON [facility] [id number] [facility] 2022-04-12 00:00:00 2022-04-12 00:00:00 Outpatient R ZAYNAB BANSAL OGECHUKWU [facility] [id number] [facility] 2022-04-11 00:00:00 2022-04-11 00:00:00 Orders Only Doctor Unassigned, [place] [facility] .840.114 350.1.13.10 4.2.7.2.686 [id number] [facility] 2022-04-06 09:00:00 2022-04-06 10:00:08 Outpatient R ZAYNAB BANSAL OGECHUKWU [facility] [id number] [facility] 2022-04-06 09:00:00 2022-04-06 10:00:08 Office Visit Zaynab Bansal [facility] 1.840.114 350.1.13.10 4.2.7.2.686 [id number] [facility] 2022-04-05 13:30:00 2022-04-05 13:30:00 Outpatient R KERVIN BORJA [facility] [id number] [facility] 2022-04-03 15:18:00 2022-04-03 17:35:00 Emergency X VICKEY NGUYEN [facility] [id number] [facility] 2022-04-03 15:18:00 2022-04-03 17:35:00 Emergency Vickey Nguyen [facility] 1.0.114 350.1.13.10 4.2.7.2.686 [id number] [facility] 2022-02-23 11:30:00 2022-02-23 11:30:00 Outpatient R JULIETA OSBORNE CHERYAL [facility] [id number] [facility] 2022-02-20 11:15:00 2022-02-20 11:15:00 Outpatient R JULIETA OSBORNE CHERYAL [facility] [id number] [facility] 2022-02-06 09:30:00 2022-02-06 10:42:38 Outpatient R WILMER VIJI [facility] [id number] [facility] 2022-02-06 09:30:00 2022-02-06 10:42:38 Office Visit Wilmer Viji [facility] 1.20.114 350.1.13.10 4.2.7.2.686 [id number] [facility] 2022-02-06 00:00:00 2022-02-06 00:00:00 Letter (Out) Wilmer Viji [facility] 1.2840.114 350.1.13.10 4.2.7.2.686 [id number] [facility] 2021-07-26 11:30:00 2021-07-26 12:07:40 Office Visit CarlitoJulieta villanueva [facility] 1.114 350.1.13.10 4.2.7.2.686 [id number] 134 [id number] [facility] 2021-07-26 11:30:00 2021-07-26 12:07:40 Out[facility] [id number] [facility] 2021-07-26 11:30:00 2021-07-26 11:30:00 Outpatient R CARLITOJULIETA VILLANUEVA CARLITOLLOYDBELIAKYLIE [facility] [id number] [facility] 2021-07-26 00:00:00 2021-07-26 00:00:00 Letter (Out) Viji Guillen [facility] 1.84.114 350.1.13.10 4.2.7.2.686 [id number] [facility] 2021-06-29 10:00:00 2021-06-29 10:40:33 Office Visit Viji Guillen [facility] 1.84.114 350.1.13.10 4.2.7.2.686 [id number] [facility] 2021-06-29 10:00:00 2021-06-29 10:40:33 Outpatient R VIJI GUILLEN [facility] [id number] [facility] 2021-06-29 10:00:00 2021-06-29 10:00:00 Outpatient R VIJI GUILLEN [facility] [id number] [facility] 2021-06-27 00:00:00 2021-06-27 00:00:00 Telephone Viji Guillen [facility] 1.840.114 350.1.13.10 4.2.7.2.686 [id number] [facility] 2021-04-12 14:24:49 2021-04-12 14:46:10 Nurse Visit Nurse, Zanj [facility] Viji Guillen [facility] 1..114 350.1.13.10 4.2.7.2.686 [id number] 134 [id number] [facility] 2021-04-12 14:00:00 2021-04-12 14:00:00 Outpatient R VIJI GUILLEN [facility] [id number] [facility] 2021-04-12 09:00:00 2021-04-12 09:00:00 Outpatient R [facility] [id number] [facility] 2021-04-12 00:00:00 2021-04-12 00:00:00 Letter (Out) Wilmer Viji [facility] 1..114 350.1.13.10 4.2.7.2.686 [id number] 134 [id number] [facility] 2021-03-09 00:00:00 2021-03-09 00:00:00 Telephone Wilmer [facility] BUILDING 1..114 350.1.13.10 4.2.7.2.686 [id number] 134 [id number] [facility] 2021-03-07 00:00:00 2021-03-07 00:00:00 Case Management Wilmer Viji [facility] 1..114 350.1.13.10 4.2.7.2.686 [id number] [facility] 2021-03-03 16:26:48 2021-03-03 16:41:48 Radiosonde Specialist Visit Pob, Adc Lab Main Wilmer Viji [facility] BUILDING 1..114 350.1.13.10 4.2.7.2.686 [id number] [facility] 2021-03-03 14:49:36 2021-03-03 16:03:08 Office Visit Viji Guillen [facility] BUILDING 1.2.840.114 350.1.13.10 4.2.7.2.686 [id number] [facility] 2021-03-03 14:30:00 2021-03-03 16:03:08 Outpatient R VIJI GUILLEN [facility] [id number] [facility] 2021-03-03 14:30:00 2021-03-03 16:03:08 Outpatient R VIJI GUILLEN [facility] [id number] [facility] 2021-03-03 00:00:00 2021-03-03 00:00:00 Orders Only Doctor Unassigned, [place] [facility] 1.2.840.114 350.1.13.10 4.2.7.2.686 [id number] [facility] 2021-03-03 00:00:00 2021-03-03 00:00:00 Letter (Out) Viji Guillen [facility] 1.2.840.114 350.1.13.10 4.2.7.2.686 [id number] [facility] 2020-09-09 14:30:00 2020-09-09 15:00:00 Office Visit Viji Guillen [facility] 1.2.840.114 350.1.13.10 4.2.7.2.686 [id number] [facility] 2020-09-09 14:30:00 2020-09-09 14:30:00 Outpatient R VIJI GUILLEN [facility] [id number] [facility] 2020-09-09 14:30:00 2020-09-09 14:30:00 Outpatient R VIJI GUILLEN [facility] [id number] [facility] 2020-03-05 00:00:00 2020-03-05 00:00:00 Nurse Triage vEangelista Ceron [facility] 1.20.114 350.1.13.10 4.2.7.2.686 [id number] [facility] 2020-03-04 15:37:05 2020-03-04 15:52:05 Radiosonde Specialist Visit Pob, Adc Lab [facility] 1..114 350.1.13.10 4.2.7.2.686 [id number] [facility] 2020-03-04 14:31:32 2020-03-04 15:13:57 Office Visit Viji Guillen [facility] Building 1..114 350.1.13.10 4.2.7.2.686 [id number] [facility] 2020-03-04 14:30:00 2020-03-04 14:30:00 Outpatient R VIJI GUILLEN [facility] [id number] [facility] 2020-03-04 14:00:00 2020-03-04 14:00:00 Outpatient VIJI MOJICA [facility] [id number] [facility] 2020-03-04 00:00:00 2020-03-04 00:00:00 Orders Only Doctor Unassigned, [place] [facility] 1.20.114 350.1.13.10 4.2.7.2.686 [id number] [facility] 2020-03-04 00:00:00 2020-03-04 00:00:00 Letter (Out) [facility] 1.20.114 350.1.13.10 4.2.7.2.686 [id number] [facility] 2020-03-03 00:00:00 2020-03-03 00:00:00 Orders Only Doctor Unassigned, [place] [facility] 1.2.840.114 350.1.13.10 4.2.7.2.686 [id number] [facility] 2020-03-01 00:00:00 2020-03-01 00:00:00 Case Management [facility] 1.2840.114 350.1.13.10 4.2.7.2.686 [id number] [facility] 2020-02-29 10:00:00 2020-02-29 10:00:00 Outpatient R WILMER VIJI [facility] [id number] [facility] 2020-02-29 00:00:00 2020-02-29 00:00:00 Orders Only Doctor Unassigned, [place] [facility] 1.2840.114 350.1.13.10 4.2.7.2.686 [id number] [facility] 2020-02-25 13:58:00 2020-02-25 17:32:00 Emergency BrayShobha jackson [facility] 1.2840.114 350.1.13.10 4.2.7.2.686 [id number] [facility] 2020-02-25 00:00:00 2020-02-25 00:00:00 Orders Only Doctor Unassigned, [place] [facility] 1.2840.114 350.1.13.10 4.2.7.2.686 [id number] [facility] 2019-12-29 09:30:00 2019-12-29 09:30:00 Outpatient R JAQUAN [facility] [id number] [facility] [facility] 2019-12-15 09:00:00 2019-12-15 09:00:00 Outpatient R [facility]QU[facility] [id number] [facility] 2019-06-05 09:12:21 2019-06-05 09:31:03 Office Visit [facility] Specialcarissa Perez 1.2.840.114 350.1.13.10 4.2.7.2.686 [id number] [facility] 2019-06-05 09:12:21 2019-06-05 09:31:03 Office Visit [facility] Specialcarissa Perez 1.2.840.114 350.1.13.10 4.2.7.2.686 [id number] Results Test Description Test Time Test Comments Results Result Co mments Source [id number] 18:18:00* Test Item Value Reference Range Interpretation Comme nts POCT PREG (test code = 1605) Positive On board controls acceptable with C Line (test code = 3574) Yes POCT PREG LOT # (test code = 3575) POCT PREG TEST DATE ( test code = 3576) [facility] ([facility]), RT-PCR/[id number] 15:36:12* Test Item Value Reference Range Interpretation Comments SARS-CoV-2 INTERPRETATION (test code = 13470) NEGATIVE SEE NOTE SARS-CoV-2 R NA NOT [...] prevalence is high. SOURCE (test code = 78577) NOT SPECIFIED Note: Methodolog y is Vonda Darryl Real-Time RT-PCR. The expected result or reference range is NEGATIVE (Not Detected). For more information regarding COVID-19 testing to include clinicalinformation, methodology detail, intended use, FDA authorization andrecommended fact sheets for patients or healthcare providers, see [facility] Announcement: SARS-CoV-2 (COVID-19) by NAAT at URL below (note,fact sheets are provided by method given in report:[email or web address] Alternatively, see downloadable PDF fact sheet at:[email or web address] UNLESS OTHERWISE INDICATED, ALL TESTING PERFORMED [facility] [employer] [address] [place] [address] DATA ENTRY MACHINE OPERATOR: BLAIRE NARANJO M.D. [place] NUMBER [id number] [facility] [place] [id number] Notes Date/Time Note Provider Source 2023-08-21 13:03:00 VYMZiXiSwmRJYSdX4vF1 /ftHTknNF3yVag BNMpnqF9Uwvjb/ub5jeAbsd123ZlLz7922 -04-17T13:03:00 Regarding: States lower abdominal pain, feels like stabbing pain, no bleeding or spotting----- Message from ROMINA Jimenez sent at 08/21/2023 1:03 PM CDT -----Jacques Ware is a 22 year old female9 weeks 53655-4Nvzkzokrt encounter GgtaOF3784-64-32Z05:03:15Telephone encounter NoteTXT1.2.840.328019.1.13.104.2.7 .2.887046|[id number] for patient aodl36127-5CqunVUZQWFGXCYYDnzaltkl d C-CDA narrative [id number] M Rea RN[address] JxpvEckgirabhLxmbstvppGNZF20806625 42MJGJZYFGMYUKHASZDFVFLM5910-07-68 T13:03:151.2.840.586886.1.72.3.15| 1.2.840.611486.1.13.104.2.7.2.7278 [id number] Celeste Wynne RN [facility] 2023-08-21 13:03:00 nweOq8fe6zIr0raWIBNb 3PVatTt1ZfRQIS rcLb6m8FmCIBTxIsOp0uPl2/qai0A90182 T13:03:00 Triage AssessmentLast Clinic Visit: 08/13/2023 Routine visitPrimary Symptom: abdominal painOnset / Duration: 3 daysLocation / Description: lower abdominal pain for past 3 days, stabbing feeling, "any time I try to use the bathroom it's worse" - constant painPain / Severity: 8/10Associated Symptoms: deniesFever / Method: deniesHydration: most of 1 liter water bottle today; last void - 20 minutes - denies burning, but notes pain in abdomen worse when urinatingTreatment so far: TylenolEffect on ADL's: concerned - hasn't stopped her from doing anything she would normally do - "I can bare the pain but it's there"Gestational Weeks: 7c1bEaglzau Membranes: NABleeding / Spotting / Pads per hour: deniesFetal Movement: NAPara / : N8S7LLU: 03/21/2024re-existing condition / Immunocompromised: history of asthma; [...] - Abdominal Pain Less Than 20 Weeks EPB-MIWAV-GSBphpshvvjrllmj signed by Celeste Wynne RN at 08/21/2023 1:25 PM LUZ56559-4Rvwvztknv encounter CdxcNW2456-05-46Y04:25:15Telephone encounter NoteTXT1.2.840.282520.1.13.104.2.7 .2.698103|[id number] for patient evvs64886-9KhwqDWPHCNIIPUMAzsgdddu d C-CDA narrative text[address] [id number] 93ETNRYCINJKCHDXTRASFAJI8095-39-36 T13:25:151.2.840.068498.1.72.3.15| 1.2.840.675492.1.13.104.2.7.2.7278 [id number] [facility] 2023-08-21 13:03:00 5JwAQZ464DohkXCCvjXg ADFOrXCIo/0Jzb K4V3bHG834AlO59N8W1Q+VnbwLeKOG5691 -04-17T13:03:00 Patient informed can take promethazine in . Patient stated she has been having constant lower abdominal pain x 3 days rated 8/10. Stated she vomited once today and is not able to eat d/t vomiting. Patient denies taking any pain medication, advised to be evaluated, verbalized understanding. 53993-0Ykckquwng encounter JmmbGE7705-06-14S06:59:54Telephone encounter NoteTXT1.2.840.885307.1.13.104.2.7 .2.059310|[id number] for patient phvl38140-1YpyfVTKVHIYVMVCNffnvkje d C-CDA narrative [id number] Garcia [id number] 48QTLXNZXQPLAZTAPYQCHNLK4331-83-60 T13:59:541.2.840.946974.1.72.3.15| 1.2.840.014284.1.13.104.2.7.2.7278 [id number] Jenny Henriquez LVN [facility] 2023-07-22 13:25:11 /II9V8V427gAcJDp4LKB XSlHLsuzkub2df lJW76rQfeGQwG2n8eYkXFGz0gMzPG32236 T13:25:11 Patient states she just threw up and asking what she should do?Please contact pt at [phone] (home) 83687-0Euatlfrwb encounter HohkUP6755-01-15C47:25:22Telephone encounter NoteTXT1.2.840.567825.1.13.104.2.7 .2.117438|[id number] for patient mqgx40992-3DqpyUSATETOYEWPBeglfvvz d C-CDA narrative [id number] L [address] Vo[id number] 77GZQTIPIAMBZYRUXEVHQVQU4575-08-45 T13:25:221.2.840.979824.1.72.3.15| 1.2.840.621943.1.13.104.2.7.2.7278 [id number] [facility] 09:10:57 H1FBPTJInr0Sp1zTo0y+ lBmBKYJdQ/lT6G 5sjFYPLQYABv6tYgiYkS5kGt1zQEmu0541 -03-14T09:10:57 Patient educated on results for chlamydia, verbalized understanding. 67907-0Yfpwszrsd encounter FfgdAI4716-51-75V49:16:55Telephone encounter NoteTXT1.2.840.739577.1.13.104.2.7 .2.433588|[id number] for patient ajgs44857-6KsxtKRAFMQYSEYAXaqcvdky d C-CDA narrative [id number] Martinez [address] PkyvObrgivztrVvnhczmskIXAC86373144 46UYWITIIILPCNXBWTAGJJTO3328-90-48 T09:16:551.2.840.770924.1.72.3.15| 1.2.840.454624.1.13.104.2.7.2.7278 [id number] Jenny Henriquez [facility] 2023-07-18 08:18:50 pQ33wEJNPSG0ErDAiIWK ik22GO7NV/qcke i0xSVFE4AwDJ2Z7Oyu8BFVJkOoJZtH9282 -03-14T08:18:50 Notified the patient of her positive STI results Chlamydia.Notified the patient her medication has been sent to her pharmacy on file.Educated patient she should complete the entire course, advised patient to practice safe sex practices and to remain abstinent for at least 1-2 weeks post treatment.Patient desires to have partner treated.Name of partner: Eder StanleyGregorio: 02/03/2001Phone number:[phone] std pamphlet for partner education. Patient declinedstd pamphlet to be mailed to partner.Partners addressAdvised patient on HIV testing if she has not recently been tested.Advised SHELBY appointment in 3 months. Pt verbalized understanding.Loreto Valdovinos RN 07/18/23 8:21 AM 05077-4Zwtziebyz encounter SkctUK3058-60-22Z27:21:37Telephone encounter NoteTXT1.2.840.911935.1.13.104.2.7 .2.662169|[id number] for patient xwry61414-5ZgviNKWQUAQWUWXGhtfpkez d C-CDA narrative [id number] Hernandez RN[address] Qx[id number] 01NAUGDKCEHMJGSKHTXZECOK5154-09-05 T08:21:371.2.840.647660.1.72.3.15| 1.2.840.802752.1.13.104.2.7.2.7278 [id number] Loreto Valdovinos RN [facility] 2023-07-18 08:03:58 H8JyVQ3A/s4TzJ4gR/92 t67dgq/QL4zHMb sgf8OQPLAXykOHZ9DOq+SHOrJu+Dk58115T08:03:58 Pt tested positive for chlamydia. Prescription for [...] (if will need SHELBY in 3-4 weeks). 06946-8Rpojuszee encounter MfkeRR8795-61-45L53:04:58Telephone encounter NoteTXT1.2.840.525380.1.13.104.2.7 .2.509270|[id number] for patient zqgz84896-7CpsgHKIDBKRZMOEQezxpmcu d C-CDA narrative text[address] HgcoD[id number] 84OLYWXPVBDOFUIYWMLQJVZU9535-80-26 T08:04:581.2.840.654182.1.72.3.15| 1.2.840.248907.1.13.104.2.7.2.7278 [id number] [facility]
[2023-09-01 14:38] LABS: Absolute Lymphocytes (CBC) 0.3 K/uL (0.7-4.9); Absolute Monocytes 0.4 K/uL (0.1-1.3); Basophils % 0.1 % (0-1.3); Eosinophils % 0.1 % (0-4.4); Hemoglobin 12.8 g/dL (12.0-15.0); Lymphocytes % 5.5 % (15.3-44.8); MCH 31.3 pg (27.0-35.0); MCHC 34.5 g/dL (32.0-36.0); MCV 90.5 fL (80-100); MPV 8.1 fL (7.6-11.3); Monocytes % 6.6 % (3.3-12.3); Neutrophils % 87.7 % (41.7-73.7); Platelets 184 thou/uL (152-406); RBC Red Blood Cell Count 4.09 M/uL (3.86-4.86); Red Cell Distribution Width 13.2 % (12.1-15.2)
[2023-09-01] MEDS ORDERED: ONDANSETRON 4 MG/2 ML VIAL ONE (14:50)
[2023-09-01] MEDS ORDERED: NA CHLORIDE 0.9% 1,000 ML ONE (14:50)
[2023-09-01 14:55] LABS: Albumin 3.9 g/dL (3.4-5.0); Albumin/Globulin Ratio 1.1 (1.1-1.8); Anion Gap 9.4 mEq/L (5.0-15.0); Bilirubin Total 0.7 mg/dL (0.2-1.0); Globulin 3.6 g/dL (2.3-3.5); Potassium 3.4 mEq/L (3.5-5.1); Protein, Total 7.5 g/dL (6.4-8.2)
[2023-09-01 15:35] LABS: Blood Morphology Comment NOT SEEN (NOT SEEN); Platelet Estimate ADEQ; White Blood Cell Scan OK (OK)
[2023-09-01 18:05] LABS: Specific Gravity > 1.030 (1.005-1.030); Urine Bacteria None Seen /HPF (<20); Urine Bilirubin NEGATIVE (Negative); Urine Blood Negative (Negative); Urine Clarity Extremely Turbid (Clear); Urine Color Yellow (Yellow); Urine Culture Reflex Order NOT NEEDED; Urine Glucose NEGATIVE (Negative); Urine Ketones 4+ (Over) (Negative); Urine Micro Reflex YN NO BILL MICROSCOPIC; Urine Mucus 4+ /HPF (None Seen); Urine Nitrite NEGATIVE (Negative); Urine Protein 1+ (Negative); Urine RBC <5 /HPF (None Seen); Urine Urobilinogen Normal (Normal); Urine WBC <5 /HPF (<5)
--- NOTE | 2023-09-01 19:18 | RAD REPORT ---
EXAM DESCRIPTION: US - 1St Trimest Single 1St Fetus - 09/01/2023 7:04 pm CLINICAL HISTORY: with abdominal pain COMPARISON: August 21, 2023 FINDINGS: The uterus measures 7 x 6 x 8 centimeters. Gestational sac is present. Within this is a fe sahara pole crown rump length 5.1 centimeters. Cardiac activity 165 beats per minute 1.6 centimeter subchorionic bleed. Right ovary normal in size and echotexture. The left ovary not seen secondary to overlying bowel gas Right and left adnexal unremarkable. No significant free fluid IMPRESSION: Single live intrauterine with an estimated gestational age 11 weeks 4 days PAULO 03/18/2024 Small subchorionic bleeds
--- NOTE | 2023-09-01 20:08 | ER ---
Nurse's Notes [facility] Name: Desiree Osman Age: 22 yrs Sex: Female : 2000 Arrival Date: 09/01/2023 Time: 13:44 Bed 9 Private MD: Diagnosis: 11 weeks gestation of ;Nausea with vomiting, unspecified;Acute gastroenteritis Presentation: 08/31 13:52 Chief complaint: Patient states: N/V/D that began last night and abd pain that began a nj1 few weeks ago. Pt also reports that she is 11 weeks . Denies vaginal bleeding. Coronavirus screen: Client denies travel out of the [place] in the last 14 days. Ebola Screen: Patient denies exposure to infectious person. Patient denies travel to an Ebola-affected area in the 21 days before illness onset. Initial Sepsis Screen: Does the patient meet any 2 criteria? No. Patient's initial sepsis screen is negative. Does the patient have a suspected source of infection? No. Patient's initial sepsis screen is negative. Risk Assessment: Do you want to hurt yourself or someone else? Patient reports no desire to harm self or others. Onset of symptoms was August 31, 2023. 13:52 Method Of Arrival: Ambulatory [facility] 13:52 Acuity: RAIMUNDO 3 nj1 Triage Assessment: 13:57 General: Appears uncomfortable, Behavior is calm, cooperative, quiet. Pain: Complains nj1 of pain in suprapubic area, right lower quadrant and left lower quadrant Pain currently is 8 out of 10 on a pain scale. Neuro: Level of Consciousness is awake, alert, obeys commands. Respiratory: Airway is patent Respiratory effort is even, unlabored, Respiratory pattern is regular, symmetrical. 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 - Infectious Disease History:: Denies. - Social history:: Smoking status: Patient denies any tobacco usage or history of. Screenin:[facility] ED Fall Risk Assessment (Adult) History of falling in the last 3 months, rs5 including since admission No falls in past 3 months (0 pts) Confusion or Disorientation No (0 pts) Intoxicated or Sedated No (0 pts) Impaired Gait No (0 pts) Mobility Assist Device Used No (0 pt) Altered Elimination No (0 pt) Score/Fall Risk Level 0 - 2 = Low Risk Oriented to surroundings, Maintained a safe environment. Abuse screen: Denies threats or abuse. Nutritional screening: No deficits noted. Tuberculosis screening: No symptoms or risk factors identified. Assessment: 14:01 General: Appears in no apparent distress. uncomfortable, Behavior is calm, cooperative. rs5 Pain: Complains of pain in abdomen Pain currently is 5 out of 10 on a pain scale. Quality of pain is described as crampy, Is intermittent, lasting a few seconds. Neuro: Level of Consciousness is awake, alert, obeys commands, Oriented to person, place, time, situation. Cardiovascular: Rhythm is regular. Respiratory: Airway is patent Respiratory effort is even, unlabored, Respiratory pattern is regular, symmetrical. GI: Abdomen is round non-distended, Bowel sounds present X 4 quads. : No signs and/or symptoms were reported regarding the genitourinary system. : Denies vaginal bleeding. EENT: No signs and/or symptoms were reported regarding the EENT system. Derm: Skin is intact, Skin is pink, warm \T\ dry. Musculoskeletal: Range of motion: intact in all extremities. 15:08 Reassessment: Patient and/or family updated on plan of care and expected duration. Pain rs5 level reassessed. Patient is alert, oriented x 3, equal unlabored respirations, skin warm/dry/pink. 16:10 Reassessment: No changes from previously documented assessment. rs5 17:15 Reassessment: Patient and/or family updated on plan of care and expected duration. Pain rs5 level reassessed. Patient is alert, oriented x 3, equal unlabored respirations, skin warm/dry/pink. 18:38 Reassessment: No changes from previously documented assessment. rs5 19:55 Reassessment: Patient appears in no apparent distress at this time. Patient and/or as6 family updated on plan of care and expected duration. Pain level reassessed. Patient is alert, oriented x 3, equal unlabored respirations, skin warm/dry/pink. Patient states feeling better. Vital Signs: 13:52 BP 99 / 73; Pulse 94; Resp 14; Temp 98.4(TE); Pulse Ox 100% on R/A; Height 5 ft. 3 in. nj1 ; Pain 8/10; 15:08 BP 105 / 77; Pulse 91; Resp 18; Pulse Ox 99% on R/A; rs5 19:54 BP 103 / 64; Pulse 88; Resp 15 S; Pulse Ox 100% on R/A; as6 13:52 Pain Scale: Adult nj1 Protem Coma Score: 20:11 Eye Response: spontaneous(4). Motor Response: obeys commands(6). Verbal Response: sp4 oriented(5). Total: 15. ED Course: 13:48 Patient arrived in ED. mg5 13:56 Triage completed. nj1 13:56 Arm band placed on right wrist. nj1 14:01 Patient has correct armband on for positive identification. Placed in gown. Bed in low rs5 position. Call light in reach. Side rails up X2. 14:01 No provider procedures requiring assistance completed. rs5 14:21 Aleksandra Walsh MD is Attending Physician. gb1 14:25 Mg Robledo, RN is Primary Nurse. rs5 19:06 1st Trimest Single 1st Fetus In Process Unspecified. EDMS 19:10 Attending Physician role handed off by Aleksandra Walsh MD sp4 19:10 Chris Caballero MD is Attending Physician. sp4 20:18 Provided Education on: follow up with OB. as6 20:18 IV discontinued, intact, bleeding controlled, No redness/swelling at site. Pressure as6 dressing applied. Administered Medications: 14:35 Drug: NS 0.9% IV 1000 ml IV at 1 bolus Per protocol; 1000 mL bolus Route: IV; Rate: 1 rs5 bolus; Site: left antecubital; 14:50 Follow up: Response: No adverse reaction rs5 19:54 Follow up: Response: No adverse reaction; IV Status: Completed infusion; IV Intake: as6 1000ml 14:35 Drug: Ondansetron IVP 4 mg IVP once; over 2 minutes Route: IVP; Site: left antecubital; rs5 14:50 Follow up: Response: No adverse reaction rs5 Medication: 15:08 VIS not applicable for this client. rs5 Intake: 19:54 IV: 1000ml; Total: 1000ml. as6 Outcome: 19:54 Condition: stable as6 20:07 Discharge ordered by . sp4 20:18 Discharged to home ambulatory, with significant other, as6 20:18 Discharge instructions given to patient, Instructed on discharge instructions, follow up and referral plans. medication usage, Demonstrated understanding of instructions, follow-up care, medications, Prescriptions given X 1, 20:19 Patient left the ED. as6 Signatures: Dispatcher [employer] EDMS Gary Lopez RN RN as6 Mg Robledo RN RN rs5 Chris Caballero MD MD sp4 Christina Chacko RN RN nj1 Tabitha Burton mg5 Aleksandra Walsh MD MD gb1 Corrections: (The following items were deleted from the chart) 13:57 13:56 Home Meds: Unable to obtain; leo nj1
--- NOTE | 2023-09-01 20:08 | EDPHYS ---
Physician Documentation [facility] Name: Desiree Osman Age: 22 yrs Sex: Female : 2000 Arrival Date: 09/01/2023 Time: 13:44 Bed 9 Private MD: ED Physician Chris Caballero HPI: 08/31 19:10 This 22 yrs old Female presents to ER via Ambulatory with complaints of gb1 Preg-11wks, Abdominal Pain, Vomiting/Diarrhea. 20:10 Patient at A 11 weeks and 0 days presents with acute onset of nausea vomiting sp4 diarrhea starting last night. 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 - Infectious Disease History:: Denies. - Social history:: Smoking status: Patient denies any tobacco usage or history of. ROS: 20:10 Constitutional: Negative for fever, chills, and weight loss, positive nausea vomiting sp4 and diarrhea 20:10 All other systems are negative, Exam: 19:10 Constitutional: This is a well developed, well nourished patient who is awake, alert, gb1 and in no acute distress. Head/Face: Normocephalic, atraumatic. Eyes: Pupils equal round and reactive to light, extra-ocular motions intact. Lids and lashes normal. Conjunctiva and sclera are non-icteric and not injected. Cornea within normal limits. Periorbital areas with no swelling, redness, or edema. ENT: Nares patent. No nasal discharge, no septal abnormalities noted. Tympanic membranes are normal and external auditory canals are clear. Oropharynx with no redness, swelling, or masses, exudates, or evidence of obstruction, uvula midline. Mucous membranes moist. Neck: Trachea midline, no thyromegaly or masses palpated, and no cervical lymphadenopathy. Supple, full range of motion without nuchal rigidity, or vertebral point tenderness. No Meningismus. Chest/axilla: Normal chest wall appearance and motion. Nontender with no deformity. No lesions are appreciated. Cardiovascular: Regular rate and rhythm with a normal S1 and S2. No gallops, murmurs, or rubs. Normal PMI, no JVD. No pulse deficits. Respiratory: Lungs have equal breath sounds bilaterally, clear to auscultation and percussion. No rales, rhonchi or wheezes noted. No increased work of breathing, no retractions or nasal flaring. Back: No spinal tenderness. No costovertebral tenderness. Full range of motion. 19:10 Abdomen/GI: Suprapubic pelvic tenderness to palpation, gb1 Vital Signs: 13:52 BP 99 / 73; Pulse 94; Resp 14; Temp 98.4(TE); Pulse Ox 100% on R/A; Height 5 ft. 3 in. nj1 ; Pain 8/10; 15:08 BP 105 / 77; Pulse 91; Resp 18; Pulse Ox 99% on R/A; rs5 19:54 BP 103 / 64; Pulse 88; Resp 15 S; Pulse Ox 100% on R/A; as6 13:52 Pain Scale: Adult nj1 Pita Coma Score: 20:11 Eye Response: spontaneous(4). Motor Response: obeys commands(6). Verbal Response: sp4 oriented(5). Total: 15. MDM: 14:21 Patient medically screened. gb1 19:10 Data reviewed: vital signs, nurses notes, lab test result(s), Beta HCG:. ED course: gb1 22-year-old G1, P0 at approximately 11 weeks gestation here with lower abdominal cramping and tenderness. She is not having any vaginal bleeding or discharge. Her beta hCG quant is 62,000 and her ultrasound of her pelvis is pending. She at this time has a differential diagnosis concerning for subchorionic hemorrhage, threatened , intrauterine with cramping. I have turned the patient's care over to Dr. Caballero pending the transvaginal ultrasound report. If the ultrasound shows an intrauterine she can be discharged home to follow-up with her established DRIVER EXAMINER as she has previously scheduled for September 09.. 20:09 ED course: EXAM DESCRIPTION: US - 1St Trimest Single 1St Fetus - 09/01/2023 7:04 pm sp4 CLINICAL HISTORY: with abdominal pain COMPARISON: August 21, 2023 FINDINGS: The uterus measures 7 x 6 x 8 centimeters. Gestational sac is present. Within this is a pole crown rump length 5.1 centimeters. Cardiac activity 165 beats per minute 1.6 centimeter subchorionic bleed. Right ovary normal in size and echotexture. The left ovary not seen secondary to overlying bowel gas Right and left adnexal unremarkable. No significant free fluid IMPRESSION: Single live intrauterine with an estimated gestational age 11 weeks 4 days PAULO 03/18/2024 Small subchorionic bleeds. 20:09 Differential diagnosis: Nonspecific abd pain, gastritis, viral gastroenteritis, sp4 gastroenteritis. Consideration of Admission/Observation Escalation of care including admission/observation considered. ED course: Patient stable for discharge home with as needed ondansetron and follow-up with her DRIVER EXAMINER. 08/31 14:22 Order name: CBC with Diff; Complete Time: 16:19 gb1 08/31 14:22 Order name: CMP; Complete Time: 16:19 gb1 08/31 14:22 Order name: Lipase; Complete Time: 16:19 gb1 08/31 14:56 Order name: CBC Smear Scan; Complete Time: 16:19 EDMS 08/31 17:30 Order name: Urinalysis W/Microscopic; Complete Time: 18:13 gb1 08/31 18:19 Order name: Quantitative Hcg; Complete Time: 19:09 gb1 08/31 18:19 Order name: 1st Trimest Single 1st Fetus; Complete Time: 20:02 gb1 08/31 14:22 Order name: IV Saline Lock; Complete Time: 15:02 gb1 08/31 14:22 Order name: Labs collected and sent; Complete Time: 15:02 gb1 Administered Medications: 14:35 Drug: NS 0.9% IV 1000 ml IV at 1 bolus Per protocol; 1000 mL bolus Route: IV; Rate: 1 rs5 bolus; Site: left antecubital; 14:50 Follow up: Response: No adverse reaction rs5 19:54 Follow up: Response: No adverse reaction; IV Status: Completed infusion; IV Intake: as6 1000ml 14:35 Drug: Ondansetron IVP 4 mg IVP once; over 2 minutes Route: IVP; Site: left antecubital; rs5 14:50 Follow up: Response: No adverse reaction rs5 Disposition Summary: 09/01/23 20:07 Discharge Ordered Notes: Location: Home sp4 Problem: new sp4 Symptoms: have improved sp4 Condition: Stable sp4 Diagnosis - 11 weeks gestation of sp4 - Nausea with vomiting, unspecified sp4 - Acute gastroenteritis sp4 Followup: sp4 - With: Private Physician - When: 7 - 10 days - Reason: Recheck today's complaints Discharge Instructions: - Discharge Summary Sheet sp4 - Clear Liquid Diet, Adult, Asgn-yk-Wnvx sp4 Forms: - Patient Portal Instructions sp4 Prescriptions: - ondansetron 8 mg Oral Tablet,disintegrating - take 1 tablet ORAL route every 6 hours PRN nausea; 30 tablet; Refills: 0, sp4 Product Selection Permitted Signatures: Dispatcher [employer] EDGary Domínguez RN RN as6 Mg Robledo RN RN rs5 Chris Caballero MD MD sp4 Christina Cahcko RN RN nj1 Aleksandra Walsh MD MD gb1 Corrections: (The following items were deleted from the chart) 13:57 13:56 Home Meds: Unable to obtain; nj1 mando1 17:30 17:30 Urinalysis W/Microscopic+U.LAB.BRZ ordered. EDMS EDMS
[2023-09-01 20:51] VITALS: BP 103/64; TEMP 98.4; O2SAT 100
== END 2023-09-01 20:19 | disposition home or self-care (01) ==
LOC: ER 13:44
DX: O99.611 Diseases of the digestive system complicating pregnancy, first trimester (principal); K52.9 Noninfective gastroenteritis and colitis, unspecified; Z3A.11 11 weeks gestation of pregnancy; Z88.0 Allergy status to penicillin; Z28.310 Unvaccinated for COVID-19
CPT/HCPCS: 85025; 81001; 36415; 84702; 83690; 80053; 76801; J2405; J7030; 96361; 96374; 99284